=== PATIENT | female | born 2000 | race Caucasian/White ===

== ENCOUNTER → 2022-07-01 13:40 | Outpatient (CLI) | payer OTHER, SELFPAY ==
--- NOTE | 2022-07-01 13:42 | DI.US.S_ITS ---
PROCEDURE: US OB <= 14 WEEKS FETUS INDICATIONS: Dating and viability OUTSIDE/PRIOR DATING DATA: Last menstrual period (LMP): 05/07/2022 LMP-based estimated date of delivery (ALEXEI): 02/11/2023 First dating scan (date and location): 07/01/2022 Estimated date of delivery (ALEXEI) from first dating scan: 02/09/2023 TECHNIQUE: Real-time scanning was performed of the fetus and maternal pelvic organs, with image documentation. Endovaginal scanning was also performed to better visualize the fetus and maternal ovaries. COMPARISON: None. FINDINGS: Embryo: Single intrauterine gestational sac is seen with fetus and yolk sac seen. Wilkinson-rump length measures 1.7 cm. Estimated gestational age is 8 weeks, 1 day. Heart rate: 173 beats per minute. Maternal organs: Ovaries are not well seen. No perigestational hemorrhage. IMPRESSION: 1. Single live intrauterine gestation with fetus and yolk sac seen. heart rate is 173 beats per minute. Estimated gestational age is 8 weeks, 1 day. We strive to produce accurate, complete, and clear reports of imaging services. To assist us in improving patient care, this report was composed using standard report templates and voice recognition software. Therefore, it may contain abnormal punctuation, insertions and/or omissions. Occasional wrong-word or sound-alike substitutions may occur. Though we review the report and make efforts to correct it, we do recommend that the report be read carefully in proper context to recognize any text inaccuracies. Dictated by: Austin Huntley M.D. on 07/01/2022 at 18:03 Approved by: Austin Huntley M.D. on 07/01/2022 at 18:05
== END ==
PROVIDERS: Referring Provider Family Medicine; Visit Provider Family Medicine
DX: Z34.01 Encounter for supervision of normal first pregnancy, first trimester (principal); Z3A.08 8 weeks gestation of pregnancy
CPT/HCPCS: 76801; 76817

== ENCOUNTER → 2022-07-28 13:04 | Outpatient (CLI) | payer OTHER, SELFPAY ==
[2022-07-28 13:32] LABS: Specimen Label NATERA
[2022-07-28 13:46] LABS: Add Manual Diff / Slide Review NO; Basophils Absolute Auto 0 /uL (0-100); Basophils Percent Auto 0.3 % (0-2); Eosinophils Absolute Auto 0 /uL (0-450); Eosinophils Percent Auto 0.6 % (2-4); Hematocrit 39.5 % (36-46); Hemoglobin 13.7 g/dL (12.0-16.0); Lymphocytes Absolute Auto 1300 /uL (1100-4500); Lymphocytes Percent Auto 18.1 % (25-40); Mean Corpuscular HGB Conc 34.7 % (30-36); Monocytes Absolute Auto 400 /uL (0-900); Monocytes Percent Auto 5.5 % (3-14); Neutrophils Absolute Auto 5500 /uL (1500-7000); Neutrophils Percent Auto 75.5 % (50-75); Platelet Count 219 X10^3/uL (150-400); Red Blood Cell Count 4.16 X10^6/uL (4.0-5.2); Red Cell Distribution Width 12.7 % (11.6-14.8); White Blood Cell Count 7.3 X10^3/uL (4.5-11.0)
[2022-07-28 14:17] LABS: BUN Creatinine Ratio 14.5 (6-22); Blood Urea Nitrogen 8 mg/dL (7-17); Calcium 8.8 mg/dL (8.4-10.2); Carbon Dioxide 21 mmol/L (22-32); Chloride 104 mmol/L (98-107); Estimated Glomerular Filt Rate > 60 mL/min (>60); Glucose 89 mg/dL (70-100); HEMOLYSIS < 15 (0-50); Sodium 134 mmol/L (137-145)
[2022-07-28 14:37] LABS: Appearance Urine UA CLEAR; Bilirubin Urine UA NEGATIVE (NEGATIVE); Color Urine UA YELLOW; Glucose Urine UA NEGATIVE (Negative); Ketones Urine UA NEGATIVE (NEGATIVE); Leukocyte Esterase Urine UA NEGATIVE (NEGATIVE); Nitrite Urine UA NEGATIVE (Negative); Occult Blood Urine UA NEGATIVE (Negative); Protein Urine UA TRACE (Negative); Specific Gravity Urine UA 1.015 (1.000-1.035)
[2022-07-28 17:57] LABS: Hepatitis B Surface Antigen NEGATIVE s/c (NEGATIVE); Rubella Antibody IgG 10.3 IU/mL (>15)
[2022-07-28 18:16] LABS: HIV 1 & 2 Ab/Ag 4th Gen Combo NEGATIVE (NEGATIVE); Hep C Virus Ab w/Reflex Quant NEGATIVE s/c (NEGATIVE)
[2022-07-29 07:19] LABS: RPR Screen Non Reactive (Non Reactive); Varicella IgG Antibody 172 index (Immune >165)
== END ==
PROVIDERS: Referring Provider Family Medicine; Visit Provider Family Medicine
DX: Z34.81 Encounter for supervision of other normal pregnancy, first trimester (principal); Q61.3 Polycystic kidney, unspecified
CPT/HCPCS: 36415; 80048; 80055; 81003; 86787; 86803; 86850; 86900; 86901; 87086; 87389

== ENCOUNTER → 2022-09-22 11:36 | Outpatient (CLI) | payer OTHER, SELFPAY | PROVIDERS: Visit Provider Family Medicine | DX: N89.8 Other specified noninflammatory disorders of vagina (principal) | CPT/HCPCS: 87210 ==

== ENCOUNTER → 2022-11-19 13:04 | Outpatient (CLI) | payer OTHER, SELFPAY ==
[2022-11-19 14:48] LABS: Add Manual Diff / Slide Review NO; Basophils Absolute Auto 0 /uL (0-100); Basophils Percent Auto 0.2 % (0-2); Eosinophils Absolute Auto 0 /uL (0-450); Eosinophils Percent Auto 0.3 % (2-4); Hematocrit 37.1 % (36-46); Lymphocytes Absolute Auto 1400 /uL (1100-4500); Lymphocytes Percent Auto 13.2 % (25-40); Monocytes Absolute Auto 600 /uL (0-900); Monocytes Percent Auto 5.4 % (3-14); Neutrophils Absolute Auto 8700 /uL (1500-7000); Neutrophils Percent Auto 80.9 % (50-75); Platelet Count 242 X10^3/uL (150-400); Red Blood Cell Count 3.82 X10^6/uL (4.0-5.2); Red Cell Distribution Width 13.7 % (11.6-14.8); White Blood Cell Count 10.8 X10^3/uL (4.5-11.0)
[2022-11-19 15:20] LABS: GTT (PREG) 1 Hour PP 50gm Dose 120 mg/dL (76-139)
== END ==
PROVIDERS: Referring Provider Family Medicine; Visit Provider Family Medicine
DX: Z34.02 Encounter for supervision of normal first pregnancy, second trimester (principal); Z3A.24 24 weeks gestation of pregnancy
CPT/HCPCS: 36415; 82950; 85025

== ENCOUNTER 2022-12-05 18:30 | Outpatient (CLI) | payer OTHER, SELFPAY ==
[2022-12-05 19:14] LABS: Add Manual Diff / Slide Review NO; Basophils Absolute Auto 0 /uL (0-100); Basophils Percent Auto 0.3 % (0-2); Eosinophils Absolute Auto 100 /uL (0-450); Eosinophils Percent Auto 0.5 % (2-4); Hematocrit 34.3 % (36-46); Hemoglobin 11.8 g/dL (12.0-16.0); Lymphocytes Absolute Auto 1700 /uL (1100-4500); Lymphocytes Percent Auto 14.9 % (25-40); Mean Corpuscular HGB Conc 34.3 % (30-36); Mean Corpuscular Hemoglobin 33.2 PG (26-34); Mean Corpuscular Volume 96.9 fL (80-100); Monocytes Absolute Auto 800 /uL (0-900); Monocytes Percent Auto 6.7 % (3-14); Neutrophils Absolute Auto 8700 /uL (1500-7000); Neutrophils Percent Auto 77.6 % (50-75); Platelet Count 213 X10^3/uL (150-400); Red Blood Cell Count 3.54 X10^6/uL (4.0-5.2); Red Cell Distribution Width 13.3 % (11.6-14.8); White Blood Cell Count 11.3 X10^3/uL (4.5-11.0)
--- NOTE | 2022-12-05 19:16 | P.TNLD_ITS ---
Visit Information Visit Information Date of evaluation: 12/05/22 Primary OB Provider: Crystal Prater On-call OB Provider: Nimco Wills Comments/Additional reasons for admission: pt. c/o headaches, RUQ pain, no scotomata, increased blood pressure, decreased movement Vital Signs Vital Signs: BP 122/74, P 88, T 36.1 FOR[facility]LY [facility], [facility] Medical History (Updated 12/05/22 @ 19:51 by Nimco Wills MD) Acne LGSIL on Pap smear of cervix Polycystic kidney disease Seasonal allergies Surgical History (Updated 06/16/22 @ 15:35 by Tracee Das, RN) History of removal of skin mole [place] teeth extracted (~2018) Family History (Updated 06/16/22 @ 15:59 by Tracee Das, HERBERTH) Mother Polycystic kidney disease Family/Other Polycystic kidney disease Grandfather Marfans syndrome Polycystic kidney disease Family/Other Marfans syndrome Grandmother Lymphoma Arthritis Grandfather Mental health problem Family/Other Marfans syndrome Sister Depression Anxiety Social History marital status: number of children: 0 household members: spouse and friend(s) lives independently: Yes caregiver/support person: No housing: house pets and animals: Yes education level: college (some college) occupational status: employed (active duty lathe machinist) current occupational exposures/hazards: Yes (exposure in the building, but no contact Hazmat duties while ) special elizabeth needs: No travel history: recent ([employer], [place]) seatbelt use: always helmet use: Yes water heater temp set < 120 deg: Yes working smoke detector in home: Yes fire extinguisher in home: Yes carbon monox detector in home: Yes firearms in home: Yes (some locked up, not all) do you feel safe at home: Yes Smoking Status: Former smoker (quit vaping 12/2021) second hand exposure: Yes (roommate vapes) alcohol intake: former (5-7 glasses of wine/week when not ) substance use type: does not use during the past year weight has: increased > 10 lbs well-balanced diet: about half the time daily servings fruits/ve-4 caffeine: Yes (<100mg/day) Type(s) of exercise: walking frequency: 3-4 times per week duration: 30-45 minutes/day Review of Systems Review of Systems Narrative: pt. c/o headache, RUQ pain, increased BP, decreased movement, no fevers, no bleeding, no contractions Objective Labs 12/05/22 19:10 12/05/22 19:10 Evaluation Evaluation Baseline heart rate: 125 Variability: Moderate (11-25) monitor accelerations: Present Monitor Decelerations: Absent Contraction Frequency (minutes): 0 Category of Tracing: Reactive Status: Category l Diagnosis, Plan/Disposition Final Diagnosis (1) headache in third trimester: Status: Acute (2) 30 weeks gestation of : Status: Acute (3) Decreased movement affecting management of in third trimester: Status: Acute Plan/Disposition Plan: Reactive NST, pt reassured baby fine. RUQ pain likely musculoskeletal ice packs and Tylenol. No evidence of preeclampsia, BP normal, normal PIH labs. Tylenol for headaches. OB Disposition: home
[2022-12-05 19:25] LABS: Aspartate Aminotransferase 23 IU/L (14-36); BUN Creatinine Ratio 11.3 (6-22); Blood Urea Nitrogen 6 mg/dL (7-17); Estimated Glomerular Filt Rate > 60 mL/min (>60); Uric Acid 3.4 mg/dL (2.5-6.2)
[2022-12-05 19:35] LABS: Creatinine Urine Random 146.9 mg/dL; Protein (Total) Urine Random 7 mg/dL (0-12); Protein Creatinine Ratio Urine 0.04 GRAM/24H
== END 2022-12-05 19:53 | disposition home or self-care (01) ==
LOC: OB 12-29 08:36
PROVIDERS: Referring Provider Specialist; Visit Provider Specialist
DX: O36.8130 Decreased fetal movements, third trimester, not applicable or unspecified (principal); O26.893 Other specified pregnancy related conditions, third trimester; R51.9 Headache, unspecified; R10.11 Right upper quadrant pain; R03.0 Elevated blood-pressure reading, without diagnosis of hypertension; Z3A.30 30 weeks gestation of pregnancy
CPT/HCPCS: 36415; 59025; 82570; 84156; 84450; 84550; 85025; G0378; G0379

== ENCOUNTER → 2022-12-08 14:05 | Outpatient (CLI) | payer OTHER, SELFPAY ==
--- NOTE | 2022-12-08 14:06 | DI.US.S_ITS ---
PROCEDURE: US OB LIMITED INDICATIONS: EFW OUTSIDE/PRIOR DATING DATA: Last menstrual period (LMP): 05/07/2022. LMP-based estimated date of delivery (ALEXEI): 02/11/2023. First dating scan (date and location): 07/01/2022. Estimated date of delivery (ALEXEI) from first dating scan: 02/09/2023. The calculations are made using the working ALEXEI of 02/11/2023. TECHNIQUE: Real-time scanning was performed of the fetus, with image documentation and biometric measurements. Endovaginal scanning: Not performed COMPARISON: None. FINDINGS: General: A single living intrauterine gestation is present. Presentation: Vertex. Placenta: Placental position is posterior , without previa. \ Amniotic fluid index: 16.7 cm, normal range is 5-24 cm. Single deepest vertical pocket is 5.8 cm. heart rate: 152 beats per minute. Maternal cervical canal: 3.1 cm long. Normal lower limit is 2.5 cm. biometrics: Biparietal diameter: 8.3 cm, 33 weeks 2 days Head circumference: 29.3 cm, 32 weeks 2 days Abdominal circumference: 28.4 cm, 32 weeks 3 days Femur length: 6.0 cm, 31 weeks 3 days Clinically estimated gestational age: 30 weeks 5 days Composite gestational age from present scan: 32 weeks 3 days Estimated weight and percentile: 1924 g, 86 percentile Other: Not applicable. IMPRESSION: 1. Living 3rd trimester intrauterine with no sonographic evidence of complications. 2. Current ultrasound age is 12 days greater than clinical age based on LMP. EFW is 86 percentile We strive to produce accurate, complete, and clear reports of imaging services. To assist us in improving patient care, this report was composed using standard report templates and voice recognition software. Therefore, it may contain abnormal punctuation, insertions and/or omissions. Occasional wrong-word or sound-alike substitutions may occur. Though we review the report and make efforts to correct it, we do recommend that the report be read carefully in proper context to recognize any text inaccuracies. Dictated by: Jeremy Martell M.D. on 12/08/2022 at 15:03 Approved by: Jeremy Martell M.D. on 12/08/2022 at 15:06
== END ==
PROVIDERS: Referring Provider Family Medicine; Visit Provider Family Medicine
DX: Z34.93 Encounter for supervision of normal pregnancy, unspecified, third trimester (principal); Z3A.32 32 weeks gestation of pregnancy
CPT/HCPCS: 76815

== ENCOUNTER → 2023-01-14 14:09 | Outpatient (CLI) | payer OTHER, SELFPAY ==
[2023-01-14 20:24] LABS: Creatinine Urine Random 189.5 mg/dL; Protein (Total) Urine Random 13 mg/dL (0-12); Protein Creatinine Ratio Urine 0.06 GRAM/24H
[2023-01-15 14:28] LABS: Strep Grp B PCR NEG for Grp B Strep
== END ==
PROVIDERS: Visit Provider Family Medicine
DX: O16.3 Unspecified maternal hypertension, third trimester (principal)
CPT/HCPCS: 82570; 84156; 87653

== ENCOUNTER → 2023-01-14 14:44 | Outpatient (CLI) | payer OTHER, SELFPAY ==
--- NOTE | 2023-01-14 14:45 | DI.US.S_ITS ---
PROCEDURE: US PERIPH VENOUS LOW EXTREM LT INDICATIONS: EDEMA TECHNIQUE: Real-time imaging, as well as color and pulse Doppler interrogation, were performed of the lower extremity deep veins from the inguinal ligament to the popliteal fossa, with documentation of the visualized calf veins. COMPARISON: None. FINDINGS: The common femoral, femoral, popliteal, and the visualized calf veins are normally compressible, and free of intraluminal thrombus. Color and pulse Doppler demonstrate normal phasic intraluminal flow. There is normal augmentation response to distal compression maneuver. IMPRESSION: No findings of lower extremity deep venous thrombosis. Dictated by: Rafael León M.D. on 01/14/2023 at 16:46 Approved by: Rafael León M.D. on 01/14/2023 at 16:50
[2023-01-14 17:22] LABS: Add Manual Diff / Slide Review NO; Basophils Absolute Auto 100 /uL (0-100); Basophils Percent Auto 0.6 % (0-2); Eosinophils Absolute Auto 0 /uL (0-450); Eosinophils Percent Auto 0.4 % (2-4); Hematocrit 36.7 % (36-46); Hemoglobin 12.9 g/dL (12.0-16.0); Lymphocytes Absolute Auto 1400 /uL (1100-4500); Lymphocytes Percent Auto 14.3 % (25-40); Mean Corpuscular HGB Conc 35.2 % (30-36); Mean Corpuscular Volume 96.7 fL (80-100); Monocytes Absolute Auto 500 /uL (0-900); Monocytes Percent Auto 5.5 % (3-14); Neutrophils Absolute Auto 7700 /uL (1500-7000); Neutrophils Percent Auto 79.2 % (50-75); Platelet Count 210 X10^3/uL (150-400); Red Cell Distribution Width 13.8 % (11.6-14.8); White Blood Cell Count 9.7 X10^3/uL (4.5-11.0)
[2023-01-14 17:53] LABS: Alanine Aminotransferase 43 IU/L (<35); Albumin 3.2 g/dL (3.5-5.0); Albumin Globulin Ratio 1.3 (1.0-2.8); Alkaline Phosphatase 105 U/L (38-126); Aspartate Aminotransferase 34 IU/L (14-36); BUN Creatinine Ratio 8.3 (6-22); Bilirubin Total 0.6 mg/dL (0.2-1.3); Blood Urea Nitrogen 5 mg/dL (7-17); Calcium 8.8 mg/dL (8.4-10.2); Carbon Dioxide 24 mmol/L (22-32); Chloride 104 mmol/L (98-107); Estimated Glomerular Filt Rate > 60 mL/min (>60); Globulin 2.5 g/dL (1.7-4.1); Glucose 89 mg/dL (70-100); HEMOLYSIS < 15 (0-50); Potassium 3.8 mmol/L (3.4-5.1); Sodium 136 mmol/L (137-145); Total Protein 5.7 g/dL (6.3-8.2)
== END ==
PROVIDERS: Referring Provider Family Medicine; Visit Provider Family Medicine
DX: O14.03 Mild to moderate pre-eclampsia, third trimester (principal)
CPT/HCPCS: 36415; 80053; 82570; 84156; 85025; 87653; 93971

== ENCOUNTER 2023-01-16 19:17 | Outpatient (CLI) | payer OTHER, SELFPAY | END 2023-01-16 20:50 | disposition home or self-care (01) | LOC: LABOR 19:22 → OB 01-20 06:16 | PROVIDERS: Referring Provider Family Medicine; Visit Provider Family Medicine | DX: O16.3 Unspecified maternal hypertension, third trimester (principal); Z3A.36 36 weeks gestation of pregnancy | CPT/HCPCS: 59025; 59050; G0378; G0379 ==

== ENCOUNTER → 2023-01-20 12:50 | Outpatient (CLI) | payer OTHER, SELFPAY ==
--- NOTE | 2023-01-20 13:59 | DI.US.S_ITS ---
PROCEDURE: US OB LIMITED INDICATIONS: LARGE FOR GESTATIONAL AGE OUTSIDE/PRIOR DATING DATA: Last menstrual period (LMP): 05/07/2023. LMP-based estimated date of delivery (ALEXEI): 02/11/2023. First dating scan (date and location): 07/01/2022. Estimated date of delivery (ALEXEI) from first dating scan: 02/09/2023. The calculations are made using the clinical ALEXEI of 02/11/2023. TECHNIQUE: Real-time scanning was performed of the fetus, with image documentation. COMPARISON: [facility], , OB LIMITED, 12/08/2022, 14:13. FINDINGS: A single living intrauterine gestation is present. Presentation: Vertex. Placenta: Placental position is posterior, without previa. Amniotic fluid index: 16.7 cm, normal range is 5-24 cm. Single deepest vertical pocket is 7.6 cm. heart rate: 123 beats per minute. Maternal cervical canal: Not well seen. BPD: 9.4 cm 38 weeks 2 days HC: 32.8 cm 37 weeks 2 days AC: 33.3 cm 37 weeks 2 days FL: 7.0 cm 35 weeks 6 days Clinically estimated gestational age: 36 weeks 6 days Estimated gestational age from initial scan: 37 weeks 1 day weight 3089 g, 59th percentile IMPRESSION: Single live intrauterine with ultrasound gestational age today of 37 weeks 1 day. Appropriate interval growth. MALLORY is within normal limits. Dictated by: Kelly Granado M.D. on 01/20/2023 at 17:03 Approved by: Kelly Granado M.D. on 01/20/2023 at 17:19
[2023-01-20 14:36] LABS: Add Manual Diff / Slide Review NO; Basophils Absolute Auto 0 /uL (0-100); Basophils Percent Auto 0.5 % (0-2); Eosinophils Absolute Auto 0 /uL (0-450); Eosinophils Percent Auto 0.3 % (2-4); Hematocrit 37.4 % (36-46); Hemoglobin 12.9 g/dL (12.0-16.0); Lymphocytes Absolute Auto 1400 /uL (1100-4500); Lymphocytes Percent Auto 14.8 % (25-40); Mean Corpuscular HGB Conc 34.6 % (30-36); Mean Corpuscular Hemoglobin 33.7 PG (26-34); Mean Corpuscular Volume 97.2 fL (80-100); Monocytes Absolute Auto 600 /uL (0-900); Monocytes Percent Auto 6.5 % (3-14); Neutrophils Absolute Auto 7300 /uL (1500-7000); Neutrophils Percent Auto 77.9 % (50-75); Platelet Count 237 X10^3/uL (150-400); Red Blood Cell Count 3.84 X10^6/uL (4.0-5.2); Red Cell Distribution Width 13.9 % (11.6-14.8); White Blood Cell Count 9.3 X10^3/uL (4.5-11.0)
[2023-01-20 14:54] LABS: Protein (Total) Urine Random 16 mg/dL (0-12); Protein Creatinine Ratio Urine 0.21 GRAM/24H
[2023-01-20 14:55] LABS: Alanine Aminotransferase 46 IU/L (<35); Albumin 3.4 g/dL (3.5-5.0); Albumin Globulin Ratio 1.1 (1.0-2.8); Alkaline Phosphatase 114 U/L (38-126); Aspartate Aminotransferase 33 IU/L (14-36); BUN Creatinine Ratio 5.8 (6-22); Bilirubin Total 0.7 mg/dL (0.2-1.3); Blood Urea Nitrogen 3 mg/dL (7-17); Calcium 9.2 mg/dL (8.4-10.2); Carbon Dioxide 21 mmol/L (22-32); Chloride 106 mmol/L (98-107); Estimated Glomerular Filt Rate > 60 mL/min (>60); Glucose 91 mg/dL (70-100); HEMOLYSIS 17 (0-50); Potassium 3.5 mmol/L (3.4-5.1); Sodium 135 mmol/L (137-145); Total Protein 6.4 g/dL (6.3-8.2)
== END ==
PROVIDERS: Referring Provider Family Medicine; Visit Provider Family Medicine
DX: Z3A.37 37 weeks gestation of pregnancy; O13.3 Gestational [pregnancy-induced] hypertension without significant proteinuria, third trimester
CPT/HCPCS: 36415; 76815; 80053; 82570; 84156; 85025

== ENCOUNTER 2023-01-20 12:52 | Outpatient (CLI) | payer OTHER, SELFPAY | END 2023-01-20 13:57 | disposition home or self-care (01) | LOC: LABOR 13:38 → OB 01-26 12:00 | PROVIDERS: Referring Provider Family Medicine; Visit Provider Family Medicine | DX: Z34.90 Encounter for supervision of normal pregnancy, unspecified, unspecified trimester (principal); Z3A.37 37 weeks gestation of pregnancy | CPT/HCPCS: 36415; 59025; 76815; 80053; 82570; 84156; 85025; G0378; G0379 ==

== ENCOUNTER 2023-01-22 20:36 | Inpatient (IN) | payer OTHER, SELFPAY ==
[2023-01-22 20:56] VITALS: BP 137/80
[2023-01-22] MEDS: LABETALOL 100 MG TABLET 200 MG PO (21:49)
[2023-01-22] MEDS: SERTRALINE 50 MG TABLET 25 MG PO (21:49)
[2023-01-22] MEDS: miSOPROStoL 25 MCG TABLET VAG (22:08)
[2023-01-22 22:14] LABS: Add Manual Diff / Slide Review NO; Basophils Absolute Auto 100 /uL (0-100); Basophils Percent Auto 0.7 % (0-2); Eosinophils Absolute Auto 0 /uL (0-450); Eosinophils Percent Auto 0.2 % (2-4); Hematocrit 34.7 % (36-46); Hemoglobin 12.2 g/dL (12.0-16.0); Lymphocytes Absolute Auto 1700 /uL (1100-4500); Lymphocytes Percent Auto 16.2 % (25-40); Mean Corpuscular HGB Conc 35.3 % (30-36); Mean Corpuscular Hemoglobin 34.2 PG (26-34); Monocytes Absolute Auto 800 /uL (0-900); Monocytes Percent Auto 7.2 % (3-14); Neutrophils Absolute Auto 8200 /uL (1500-7000); Neutrophils Percent Auto 75.7 % (50-75); Platelet Count 225 X10^3/uL (150-400); Red Blood Cell Count 3.58 X10^6/uL (4.0-5.2); Red Cell Distribution Width 13.9 % (11.6-14.8); White Blood Cell Count 10.8 X10^3/uL (4.5-11.0)
[2023-01-22] MEDS: ZOLPIDEM 5 MG TABLET PO (23:05)
[2023-01-23] MEDS: miSOPROStoL 25 MCG TABLET VAG ×2 (02:08→06:08)
--- NOTE | 2023-01-23 09:11 | PM.OBHP.IH.1 ---
OB HPI Date/Time Date of admission: 01/22/23 Date Patient Seen: 01/23/23 Time Patient Seen: 07:45 History of Present Condition Chief complaint: observation of labor ALEXEI Calculator Estimated Delivery Date Method Current WG Current Estimate 02/11/23 Manual 37w 2d Final ALEXEI - CINDY Other Estimates 02/11/23 LMP (Certain) 37w 2d 02/09/23 Ultrasound #1 37w 4d Estimated Gestational Age (weeks): 37w2d : 1 Para: 0 Narrative: Pt is a 22yo at 37w2d here for IOL for gestational HTN. Pt denies any vaginal bleeding or LOF. She is feeling mild cramping. She is feeling her baby move regularly. No headache, vision changes, RUQ pain, acutely worsening swelling. Pt with history of polycystic kidneys. FOBs sister also due to hypoplastic left heart syndrome. MFM referral was completed at the start of the . They recommended close monitoring of the pt for hypertensive issues and UTIs. echo was completed that was normal. At 36wks the pt was noted to have consistently elevated BPs and was diagnosed with gestational hypertension. Labs were reassuring, and the pt was asymptomatic. care: good care, initiated at week # (11) and pounds weight gain (32) Dating criteria OB: LMP confirmed by 1st trimester US Ultrasounds: normal 1st trimester US and normal mid trimester US Obstetrical complications: none Medical complications OB: other (Polycystic kidney disease) Indications Indication for induction OB: gestational HTN/pre-eclampsia Preadmission Labs Last OB Lab Results: Blood Type O Positive 01/22/23 22:04 Antibody Screen Negative 01/22/23 22:04 Hematocrit 34.7 % (36-46) L 01/22/23 22:04 Hemoglobin 12.2 g/dL (12.0-16.0) 01/22/23 22:04 Hepatitis B Surface Antigen Negative s/c (NEGATIVE) 07/28/22 13:13 Hepatitis C Antibody Negative s/c (NEGATIVE) 07/28/22 13:13 Rubella Antibody 10.3 IU/mL (>15) L 07/28/22 13:13 Varicella-Zoster IgG Antibody 172 index (Immune >165) 07/28/22 13:13 Glucose 1 Hour 120 mg/dL (76-139) 11/19/22 13:11 Group B Streptococcus (PCR) Neg for grp b strep 01/14/23 14:09 Evaluation Evaluation Baseline heart rate: 125 Variability: Moderate (11-25) monitor accelerations: Present Monitor Decelerations: Absent Contraction Frequency (minutes): 7 Uterine Contraction Intensity: Mild Status: Category l Dilation (cm): 2 Effacement (%): 70 Dilation: 1-2 cm Effacement: 60-70% station: -2 Position of cervix: posterior Consistency: soft Rouse score: 6 PFSH Medical History (Updated 01/20/23 @ 07:55 by Crystal Prater MD) Acne LGSIL on Pap smear of cervix Polycystic kidney disease Seasonal allergies Surgical History (Updated 06/16/22 @ 15:35 by Tracee Das, RN) History of removal of skin mole [place] teeth extracted (~2017) Family History (Updated 06/16/22 @ 15:59 by Tracee Das RN) Mother Polycystic kidney disease Family/Other Polycystic kidney disease Grandfather Marfans syndrome Polycystic kidney disease Family/Other Marfans syndrome Grandmother Lymphoma Arthritis Grandfather Mental health problem Family/Other Marfans syndrome Sister Depression Anxiety Social History marital status: number of children: 0 household members: spouse and friend(s) lives independently: Yes caregiver/support person: No housing: house pets and animals: Yes education level: college (some college) occupational status: employed (active duty computer numerical control machinist) current occupational exposures/hazards: Yes (exposure in the building, but no contact Hazmat duties while ) special elizabeth needs: No travel history: recent (domestic, [place]) seatbelt use: always helmet use: Yes water heater temp set < 120 deg: Yes working smoke detector in home: Yes fire extinguisher in home: Yes carbon monox detector in home: Yes firearms in home: Yes (some locked up, not all) do you feel safe at home: Yes Smoking Status: Former smoker second hand exposure: Yes (roommate vapes) alcohol intake: former (5-7 glasses of wine/week when not ) substance use type: does not use during the past year weight has: increased > 10 lbs well-balanced diet: about half the time daily servings fruits/ve-4 caffeine: Yes (<100mg/day) Type(s) of exercise: walking frequency: 3-4 times per week duration: 30-45 minutes/day Meds Home Medications and Allergies Home Medications Medication Instructions Recorded Confirmed Type prenat.vits,melissa,rev-nrjv-iowdb 1 tab PO DAILY 06/16/22 01/22/23 History labetalol 100 mg tablet 200 mg PO BID gestational 01/22/23 01/22/23 History hypertension sertraline 25 mg tablet 25 mg PO DAILY depression 01/22/23 01/22/23 History Allergies Allergy/AdvReac Type Severity Reaction Status Date / Time No Known Drug Allergies Allergy Unverified 01/14/23 13:51 OB Exam Narrative Exam Narrative: Gen: NAD, sitting comfortably in bed, appears well CV: RRR, no murmurs Resp: clear to auscultation bilaterally Abd: soft, nontender, gravid Ext: trace edema Neuro: no clonus Objective Labs 01/22/23 22:04 Labs: Laboratory Results - last 24 hr 01/22/23 01/22/23 22:04 22:04 WBC 10.8 RBC 3.58 L Hgb 12.2 Hct 34.7 L MCV 97.0 MCH 34.2 H MCHC 35.3 RDW 13.9 Plt Count 225 Neut % (Auto) 75.7 H Lymph % (Auto) 16.2 L [place] % (Auto) 7.2 Eos % (Auto) 0.2 L Baso % (Auto) 0.7 Neut # (Auto) 8200 H Lymph # (Auto) 1700 [place] # (Auto) 800 Eos # (Auto) 0 Baso # (Auto) 100 Blood Type O Positive Antibody Screen Negative Assessment and Plan Assessment and Plan Assessment and Plan narrative: Pt is a 22yo at 37w2d here for IOL for gestational HTN. GBS negative, Rh positive. BPs all normal range thus far, pre-eclampsia/HELLP labs completed 01/20 normal range. Received cytotec overnight with minimal cervical change. Rouse score currently 6. Discussed pitocin vs higgins catheter, and pt prefers pitocin at this point. - Expectant management, anticipate - FHT reassuring - Start pitocin, titrate as tolerated. If without change within several hours of initiating, plan to use higgins - Epidural for pain control when in more active labor - GBS negative, no prophylaxis indicated - Close monitoring of BPs
[2023-01-23] MEDS: OXYTOCIN PREMIX 30 UNIT/500 ML PLAST..BAG IV (09:12)
[2023-01-23 09:21] VITALS: BP 130/74; PULSE 85
[2023-01-23] MEDS: LABETALOL 100 MG TABLET 200 MG PO ×2 (09:21→21:12)
--- NOTE | 2023-01-23 13:29 | PM.OBPNLAB ---
Date/Time Date Patient Seen: 01/23/23 Time Patient Seen: 13:29 Pain Control Pain control: tolerating well Pelvic Exam Dilation (cm): 2.5 Effacement (%): 70 station: -2 Amniotic membrane status: Intact Comments: very posterior Contractions Monitor mode: External Pitocin rate (mU/min): 14 Contraction frequency (min): 3 Contraction intensity: Moderate Status status: Category l Heart Rate Baseline: 130 Monitor Accelerations: Present Monitor Decelerations: Absent Monitor Variability: Moderate Assessment and Plan Comments: Pt is a 22yo at 37w2d here for IOL for gestational HTN.? GBS negative, Rh positive.? BPs all normal range thus far, pre-eclampsia/HELLP labs completed 01/20 normal range.? Received cytotec overnight with minimal cervical change.? Rouse score 6 this morning.? Discussed pitocin vs higgins catheter, and pt prefers pitocin at this point. Pt just starting to feel contractions, does have some small cervical changes. Will continue with pitocin.
[2023-01-23] MEDS: fentaNYL 100 MCG/2 ML INJ 50 MCG IV ×3 (18:22→21:12)
--- NOTE | 2023-01-23 21:07 | PM.OBPNLAB ---
Date/Time Date Patient Seen: 01/23/23 Time Patient Seen: 16:45 Pain Control Pain control: tolerating well Pelvic Exam Dilation (cm): 2 Effacement (%): 70 station: -1 Amniotic membrane status: Ruptured Comments: After informed consent, AROM performed with production of clear fluid Contractions Monitor mode: External Contraction frequency (min): 3 Contraction intensity: Moderate Status status: Category l Heart Rate Baseline: 130 Monitor Accelerations: Present Monitor Decelerations: Absent Monitor Variability: Moderate Assessment and Plan Comments: Pt is a 22yo at 37w2d here for IOL for gestational HTN.? GBS negative, Rh positive.? BPs all normal range thus far, pre-eclampsia/HELLP labs completed 01/20 normal range.? Received cytotec overnight with minimal cervical change.? Rouse score 6 this morning.? Discussed pitocin vs higgins catheter, and pt preferred pitocin.? AROM now performed with clear fluid present. Cervix significantly more anterior at this point, although no significant change in dilation. Continue pitocin, titrate as tolerated. Plan to recheck cervix in 4-6hrs to ensure making change.
[2023-01-23] MEDS: SERTRALINE 50 MG TABLET 25 MG PO (21:12)
[2023-01-24] MEDS: FENT 2MCG/ML BUPIV 0.1% EPI 200 MCG/100 ML PLAST..BAG 6 MCG EPIDURAL ×2 (04:28→08:21)
[2023-01-24] MEDS: diphenhydrAMINE 50 MG/ML VIAL 25 MG IV (05:28)
--- NOTE | 2023-01-24 07:57 | P.PNOB_ITS ---
Date/Time Date Patient Seen: 01/24/23 Time Patient Seen: 07:57 Pain Control Pain control: epidural Pelvic Exam Dilation (cm): 10 Effacement (%): 100 station: +2 Amniotic membrane status: Ruptured Contractions Monitor mode: External Pitocin rate (mU/min): 14 Contraction frequency (min): 3 Contraction intensity: Moderate Status status: Category l Heart Rate Baseline: 135 Monitor Accelerations: Present Monitor Decelerations: Absent Monitor Variability: Moderate Assessment and Plan Comments: Pt is a 22yo at 37w2d here for IOL for gestational HTN.? GBS negative, Rh positive.? BPs all normal range thus far, pre-eclampsia/HELLP labs completed 01/20 normal range.? Received cytotec initially with minimal cervical change.? AROM performed with clear fluid present.? Pitocin was then titrated. The pt received an epidural and progressed to complete. She pushed for nearly 4hrs with minimal descent thought to be more be due to maternal propulsive efforts. Many positions were attempted. Due to maternal fatigue, duration of pushing, and progressing labial swelling the decision was made to proceed with a vacuum- assisted vaginal delivery. Patient was evaluated and noted to have adequate pain control. Patient counseled on risks/benefits/alternatives of vacuum assisted delivery. Risks were discussed and they included but were not limited to a need for an episiotomy, pressure pierre on the baby, lacerations to the baby's scalp/face, serious damage including skull fracture, the need to proceed with an abdominal procedure, , paralysis of the baby's arms and/or legs, neurological impairment of the baby. Alternatives would include or further observation. Questions were answered and the patient verbalized an understanding and decided to proceed. Cervix completely dilated and maternal bladder emptied. Maternal pelvis was noted to be adequate. Vacuum cup of the [employer] applied to the flexion point without difficulty and during contractions, pressure applied between 400-600 mmHg as indicated in the green zone of the pressure gauge. The vacuum was utilized for 6 contractions. Initially there was good descent. Descent continued, however with more regression between contractions. There were 3 pop-offs throughout the course of vacuum application. After the last 2 contractions and last pop-off, the head was noted to turtle back into the pelvis significantly. Due to concern for shoulder dystocia, with 3 pop-offs already occurring, decision was made to proceed with primary for failure to descend.
--- NOTE | 2023-01-24 08:00 | PM.PREOP ---
Pre-operative Note Interval Note History & Physical reviewed/Exam performed by Physician: Yes Changes to H&P: No
[2023-01-24] MEDS: CITRIC ACID/SODIUM CITRATE 15 ML SOLUTION 30 ML PO (08:21)
[2023-01-24] MEDS: CEFAZOLIN 2 GM/100 ML PREMIX 100 ML IV (09:05)
--- NOTE | 2023-01-24 09:31 | SUR.OPER ---
Supine on Padded OR bed, head on pillow, safety belt at thigh, arms secured on padded arm boards at <90 degrees abduction. Bump under right buttock. Legs uncrossed with pillow under knees, gel pad to heels, tape over blanket to lower legs. Gel pad placed between patients posterior upper leg and urinary catheter tubing.
--- NOTE | 2023-01-24 09:32 | SUR.OPER ---
Viable baby girl delivered at 0918. Placenta delivered. Placenta and cord blood tubes X2 given to L&D RN.
[2023-01-24 10:06] VITALS: BP 137/80; PULSE 66; RESP 21; TEMP 37.3; O2SAT 96
--- NOTE | 2023-01-24 10:10 | P.OP_ITS ---
Operative Date/Time/Diagnoses Date of procedure: 01/24/23 Pre-op diagnosis: 37w3d gestation GBS negative Rh positive Gestational hypertension Failure to descend Failed vacuum attempt Post-op diagnosis: same Procedure & Clinicians Procedure: Primary Same procedure as scheduled: Yes Indications: Failure to descend and failed vaccuum attempt Surgeon: Crystal Prater Academic Support Coordinator: Nimco Wills Anesthesia Type: Epidural Operative Notes Findings: Normal uterus, ovaries, and tubes Closure Type: primary Specimen(s): cord blood Intraoperative meds administered: Ketorolac and Pitocin Applied: Catheter Estimated Blood Loss (mL): 400 Blood products transfused: none Procedure in detail: OPERATIVE COURSE: The patient was taken to the operating room where epidural anesthesia was rebolused. She was then prepared and draped in the normal sterile fashion in the dorsal supine position with a leftward tilt. Anesthesia was tested and found to be adequate. A Pfannensteil skin incision was then made with the scalpel and carried through to the underlying layer of fascia with the scalpel. The fascia was incised in the midline and the incision extended laterally with the Lynne scissors. The superior aspect of the fascial incision was then grasped with Puneet clamps, elevated with the help of the kennel assistant, and the underlying rectus muscles dissected off bluntly and sharply where needed. Attention was then turned to the inferior aspect of the incision which, in a similar fashion, was grasped, tented up with Puneet clamps, and the rectus muscle dissected off bluntly and sharply with Lynne scissors. The rectus muscles were then in the midline, and the peritoneum was identified and entered bluntly. The peritoneal incision was then extended with good visualization of the bladder. Retraction was provided by the kennel assistant. The bladder blade was then inserted and the vesicouterine peritoneum identified, grasped with pick-ups and entered sharply with the Metzenbaum scissors. The incision was then extended laterally and the bladder flap created digitally. The bladder blade was then reinserted and the lower uterine segment incised in a transverse fashion with the scalpel, with the kennel assistant providing suction. The uterine incision was then extended superolaterally by pulling superolaterally on both sides. Membranes were ruptured and fluid was clear. The bladder blade was removed the 's head was flexed out of DESIRE position and delivered atraumatically, with fundal pressure by the kennel assistant. The nose and mouth were suctioned with bulb suction and the cord was clamped and cut after 1 minute. The was handed off to the waiting nursing staff. Cord blood was collected for Rh status. The placenta was then delivered with gentle cord traction. The uterus was then cleared of all clots and debris. The uterine incision was repaired with O- Vicryl in a running, locked fashion, including a small extension on the left side. A second layer of the same suture was used for imbrication. Figure-of-8 with 2-0 Chromic was completed on the left side of the hysterotomy for excellent hemostasis. The gutters were cleared of all clots. Hysterotomy was investigated and found to be hemostatic. The bladder flap was closed with 2-O Chromic. The peritoneum was closed with 3-O Vicryl. The fascia was reapproximated with O-Vicryl in a running fashion. The subcutaneous tissue was reapproximated with 3-O Vicryl. The skin was closed with 4-O Vicryl. The kennel assistant helped with retraction during closures. SPONGE AND NEEDLE COUNTS: Correct x3. DRESSING: Aquacel ANTICOAGULATION: SCDs applied prior to Surgery Preop antibiotics given (see MAR). The patient was taken to recovery room having tolerated procedure well. Baby 1: Gender: Female Presentation: vertex Position: Left Occiput Anterior Placental Delivery Description: Spontaneous Cord Vessel Description: 3 Vessels score (1 min): 9 score (5 min): 9 weight: 6 lb 15 oz Post-operative Condition: stable Disposition: PACU Aftercare: routine postop
[2023-01-24 10:11] VITALS: BP 139/73; PULSE 77; RESP 11; O2SAT 96
[2023-01-24] MEDS: fentaNYL 100 MCG/2 ML INJ 50 MCG IV (10:19)
[2023-01-24] MEDS: ONDANSETRON 4 MG/2 ML INJ IV (10:19)
[2023-01-24 10:21] VITALS: BP 147/81; PULSE 85; RESP 11; O2SAT 97
[2023-01-24 10:26] VITALS: BP 139/78; PULSE 75; RESP 14; TEMP 36.6; O2SAT 98
[2023-01-24] MEDS: OXYCODONE IR 5 MG TABLET PO ×2 (12:11→21:16)
--- NOTE | 2023-01-24 12:27 | PM.ANES.PR ---
Operative Date/Time/Diagnoses Date of procedure: 01/23/23 Time of procedure: 22:40 Pre-op diagnosis: Labor pain Post-op diagnosis: same
--- NOTE | 2023-01-24 12:30 | PM.AN.REGBLK ---
Regional Block Pre-procedure Procedure: Continuous Lumbar Epidural for L&D Attending OB provider: Crystal Prater PMH/ROS narrative: Patient is a G1PO with gestational hypertension requesting labor epidural Hx: No personal or family history of anesthesia problems. Exam narrative: Mallampati 2, T.M > 3 cm, good neck ROM, dentition intact ASA Class: II Labs: Hct 34.7 % (36-46) L 01/22/23 22:04 Plt Count 225 X10^3/uL (150-400) 01/22/23 22:04 Medications: Current Medications Generic Name Dose Route Start Last Admin Trade Name Freq PRN Reason Stop Dose Admin Acetaminophen 650 mg 01/24/23 11:28 Acetaminophen 325 Mg Tablet PO Q6H KLAUS Carboprost Tromethamine 250 mcg 01/24/23 11:28 Carboprost 250 Mcg/Ml Ampul IM Q90M PRN Bleeding Docusate Sodium 100 mg 01/25/23 09:00 Docusate 100 Mg Capsule PO DAILY KLAUS Emollient Ointment 1 applic 01/24/23 11:28 Lanolin Oint 7 Gm TOP PRN PRN Oxytocin/Lactated Ringer's 30 unit in 500 mls @ 200 mls/hr 01/24/23 11:28 Oxytocin Premix IV NOW PRN Bleeding Protocol Tranexamic Acid 1,000 mg/ 100 mls @ 200 mls/hr 01/24/23 11:28 Sodium Chloride IV NOW PRN Bleeding Ibuprofen 600 mg 01/25/23 10:15 Ibuprofen 600 Mg Tablet PO Q6H [facility] Ketorolac Tromethamine 30 mg 01/24/23 11:28 Ketorolac 30 Mg/Ml Vial IV 01/25/23 05:29 Q6H KLAUS Methylergonovine Maleate 0.2 mg 01/24/23 11:28 Methylergonovine 0.2 Mg/Ml Vial IM NOW PRN Bleeding Methylergonovine Maleate 0.2 mg 01/24/23 11:28 Methylergonovine 0.2 Mg Tablet PO Q6H PRN Bleeding Misoprostol 800 mcg 01/24/23 11:28 Misoprostol 200 Mcg Tablet MI NOW PRN Bleeding Misoprostol 400 mcg 01/24/23 11:28 Misoprostol 200 Mcg Tablet SL NOW PRN Bleeding Naloxone HCl 0.2 mg 01/24/23 11:28 Naloxone 0.4 Mg/Ml Vial IV Q2MIN PRN Opiate Reversal Ondansetron HCl 4 mg 01/24/23 11:28 Ondansetron 4 Mg/2 Ml Inj IV Q6H PRN Nausea And Vomiting Oxycodone HCl 5 mg 01/24/23 11:28 01/24/23 12:11 Oxycodone Ir 5 Mg Tablet PO 5 mg Q4H PRN Administration Pain, Moderate (4-6) Oxytocin 10 unit 01/24/23 11:28 Oxytocin 10 Unit/Ml Vial IM NOW PRN Bleeding Vit/Calcium/Iron/Folic Ac 1 tab 01/25/23 09:00 Vit,Calc/Iron/Folic 1 Tablet PO DAILY KLAUS Sertraline HCl 25 mg 01/25/23 09:00 Sertraline 50 Mg Tablet PO DAILY KLAUS Allergies: Allergies Allergy/AdvReac Type Severity Reaction Status Date / Time No Known Drug Allergies Allergy Unverified 01/14/23 13:51 Procedure Insertion date: 01/23/23 Insertion time: 22:40 Prep/Local: 1% lidocaine (prep with Chloroprep) Interspace: L4-5 Patient position: sitting Needle: 18 gauge Amrit Loss of resistance with: saline DAGMAR at (cm): 6 Catheter placed at SKIN (cm): 11 Catheter in SPACE (cm): 5 Sensory level: T10 Insertion: No CSF, No Blood, No Paresthesia with insertion, No Paresthesia with injection and No Test dose reaction Initial Medications TEST DOSE time: 22:58 TEST DOSE: 1.5% lidocaine with epinephrine 1:200k (mL): 5 BOLUS DOSE time: 23:59 BOLUS DOSE (mL): 5 BOLUS DOSE med: other (2% Lidocaine) Infusion INFUSION: 0.125% bupivacaine and with fentanyl 2 mcg/mL Initial rate (mL/hr): 10 Subsequent interventions: 01/24/23 @ 0745 : decision to proceed with 2/2 failure to descend/vacuum, patient c/o pain in cervical area, given clinician bolus from pump of 10mls, rate inc to 15ml/hr until OR set up. Patient comfortable, stable FHT after intervention 01/24/23 @0850, epidural stopped in Labor room and patient transferred to OR for at 0855 Post-procedure Anesthesia time START: 22:40 Anesthesia time END: 08:55 Post-procedure Anesthesia Assessment: Yes CV function: HR/BP stable, Yes Resp function: RR/sat/airway adequate, Yes Post-op hydration adequate, Yes Pain control adequate, Yes Nausea & vomiting absent, Yes Temperature > 36 C, Yes Mental status appropriate and Yes Anesthesia complications
[2023-01-24] MEDS: KETOROLAC 30 MG/ML VIAL IV ×2 (16:04→21:15)
[2023-01-24] MEDS: ACETAMINOPHEN 325 MG TABLET 650 MG PO (18:59)
[2023-01-24] MEDS: SERTRALINE 50 MG TABLET 25 MG PO (22:15)
[2023-01-25] MEDS: OXYCODONE IR 5 MG TABLET PO ×5 (01:11→22:04)
[2023-01-25] MEDS: ACETAMINOPHEN 325 MG TABLET 650 MG PO ×4 (01:11→20:56)
[2023-01-25] MEDS: KETOROLAC 30 MG/ML VIAL IV (05:19)
[2023-01-25 06:21] LABS: Add Manual Diff / Slide Review NO; Basophils Absolute Auto 100 /uL (0-100); Basophils Percent Auto 0.6 % (0-2); Eosinophils Absolute Auto 100 /uL (0-450); Eosinophils Percent Auto 0.5 % (2-4); Hematocrit 33.6 % (36-46); Hemoglobin 11.8 g/dL (12.0-16.0); Lymphocytes Absolute Auto 1500 /uL (1100-4500); Lymphocytes Percent Auto 12.6 % (25-40); Mean Corpuscular Hemoglobin 34.1 PG (26-34); Mean Corpuscular Volume 97.3 fL (80-100); Monocytes Absolute Auto 900 /uL (0-900); Monocytes Percent Auto 7.3 % (3-14); Neutrophils Absolute Auto 9300 /uL (1500-7000); Platelet Count 176 X10^3/uL (150-400); Red Blood Cell Count 3.45 X10^6/uL (4.0-5.2); Red Cell Distribution Width 13.9 % (11.6-14.8); White Blood Cell Count 11.8 X10^3/uL (4.5-11.0)
[2023-01-25] MEDS: PRENATAL VIT,CALC/IRON/FOLIC 1 TABLET 1 TAB PO (09:18)
[2023-01-25] MEDS: DOCUSATE 100 MG CAPSULE PO (09:18)
--- NOTE | 2023-01-25 11:50 | PM.OBPN.1 ---
Subjective - OB Subjective Narrative: Patient reports that she is doing well. Her lochia is decreasing appropriately. She has voided successfully. She has passed flatus. She has been out of bed 3 times thus far. She is , still working on a good latch. Exam Vital Signs (past 8 hours): Oxygen Delivery Method Room Air Resp Auscultation: clear to auscultation bilaterally Cardio Rate: regular rate Rhythm: regular rhythm Heart Sounds: S1 normal, S2 normal and no murmurs GI Inspection: non-distended and incision (dressing c/d/i) Palpation: soft, No guarding and tender (appropriately tender) Auscultation: normal bowel sounds Other: fundus firm and below the umbilicus Extrem Other: 1+ pitting edema bilaterally Objective Labs 01/25/23 06:12 Labs: Laboratory Results - last 24 hr 01/25/23 06:12 WBC 11.8 H RBC 3.45 L Hgb 11.8 L Hct 33.6 L MCV 97.3 MCH 34.1 H MCHC 35.0 RDW 13.9 Plt Count 176 Neut % (Auto) 79.0 H Lymph % (Auto) 12.6 L [place] % (Auto) 7.3 Eos % (Auto) 0.5 L Baso % (Auto) 0.6 Neut # (Auto) 9300 H Lymph # (Auto) 1500 [place] # (Auto) 900 Eos # (Auto) 100 Baso # (Auto) 100 Assessment & Plan Plan Comments: Pt is a 22yo POD#1 s/p primary for failure to descend and failed vacuum without complications. complicated by gestational hypertension, BPs all in good range since delivery. Pt doing well. - Normal care - support Time Spent With Patient Time: Total time spent is greater than 50% in coordination of care (as documented) at patient's floor/unit and/or counseling patient: Time with patient: less than 15 minutes
[2023-01-25] MEDS: IBUPROFEN 600 MG TABLET PO ×2 (12:19→18:20)
[2023-01-25] MEDS: SERTRALINE 50 MG TABLET 25 MG PO (20:57)
[2023-01-26] MEDS: IBUPROFEN 600 MG TABLET PO ×2 (00:47→06:48)
[2023-01-26] MEDS: ACETAMINOPHEN 325 MG TABLET 650 MG PO ×2 (02:45→08:32)
[2023-01-26] MEDS: OXYCODONE IR 5 MG TABLET PO ×3 (02:47→10:51)
[2023-01-26] MEDS: DOCUSATE 100 MG CAPSULE PO (08:31)
[2023-01-26] MEDS: PRENATAL VIT,CALC/IRON/FOLIC 1 TABLET 1 TAB PO (08:31)
[2023-01-26] MEDS: LANOLIN OINT 7 GM 1 APPLIC TOP (08:33)
--- NOTE | 2023-01-26 12:31 | PM.OBDS.1 ---
Discharge Providers Provider Date of admission: 01/22/23 20:36 Discharge Date: 01/26/23 Primary care physician: Mariana GRAJEDA Provider Consults: 01/24/23 11:28 Consult to Network Management Specialist Routine Comment: Discharge provider: Crystal Prater MD Summary Hospital Course Date Patient Seen: 01/26/23 Diagnoses: 37w3d gestation GBS negative Rh positive Gestational hypertension Depression Failure to descend Failed vacuum attempt Hospital Course: The pt presented for IOL for gestational hypertension. She received cytotec followed by pitocin. AROM was performed with clear fluid present. She progressed to complete dilation. After 4hrs of pushing, due to maternal exhaustion the decision was made to proceed with vacuum-assisted vaginal delivery. After 3 pop-offs and with evidence of turtling of the head, there was concern for potential shoulder dystocia and the pt underwent primary for delivery. A viable baby girl was delivered without complications. , there were no complications. At the time of discharge she was voiding, ambulating, and passing flatus without difficulty. Her lochia was decreasing appropriately. Her pain was well controlled. She was with improved latch after frenotomy. She will f/u in 6 weeks for check. Peripartum Data Infant Delivery Method: Section Procedures: Primary complications: none 1: Gender: Female Disposition of : home Discharge Diagnosis (1) Failure of descent in labor, delivered, current hospitalization: Status: Acute (2) Gestational hypertension: Status: Acute (3) Depression: Status: Acute (4) Polycystic kidney disease: Status: Acute (5) S/P : Status: Acute Status at Discharge Cognitive/behavioral status at discharge: oriented Functional status at discharge: independent ambulation Overall status at discharge: patient is progressing back to baseline Time Spent with Patient Time attestation: Total time spent providing and/or coordinating discharge services: Objective Labs 01/25/23 06:12 Exam Vital Signs (past 8 hours): Oxygen Delivery Method Room Air Resp Auscultation: clear to auscultation bilaterally Cardio Rate: regular rate Rhythm: regular rhythm Heart Sounds: S1 normal, S2 normal and no murmurs GI Inspection: non-distended and incision (dressing c/d/i) Palpation: soft, No guarding and tender (appropriately tender) Auscultation: normal bowel sounds Other: fundus firm and below the umbilicus Extrem General: pedal edema Discharge Plan Discharge Plan Patient Disposition: Home Discharge orders & Medications Prescriptions: New acetaminophen 325 mg Tablet 650 mg PO Q6H Qty: 60 0RF docusate sodium 100 mg Capsule 100 mg PO DAILY Qty: 30 0RF ibuprofen 600 mg Tablet 600 mg PO Q6H Qty: 90 0RF oxycodone 5 mg Tablet 5 mg PO Q4H PRN (Reason: Pain, Moderate (4-6)) Qty: 40 0RF Continued prenat.vits,melissa,[id number] Tablet 1 tab PO DAILY sertraline 25 mg tablet 25 mg PO DAILY Discontinued labetalol 100 mg tablet 200 mg PO BID Follow up/Referrals: ProviderMariana [Primary Care Provider] - (Follow up with Dr. Prater on 02/02/2023 @ 1000 for incision check) Crystal Prater MD [Physician] - 02/02/23 10:00 am Diet/Activity/Treatments Diet: Diet as Tolerated and Regular Skin/Wound/Dressing Care Report to your healthcare provider any signs of infection, such as:: chills, fever, increased pain and unusual drainage Visit Report/Discharge Packet Instructions: DI for Stand Alone Forms: Discharge: Care, Patient Portal/API, Stroke Signs & Symptoms Discharge Data Primary Care Provider: ProviderMariana Discharges patient from system. Discharge Date/Time: 01/26/23 13:40
[2023-01-26 12:49] VITALS: BP 139/78; PULSE 75; RESP 14; TEMP 36.6
== END 2023-01-26 13:40 | disposition home or self-care (01) | DRG 788 ==
PROVIDERS: Admitting Provider Family Medicine; Referring Provider Family Medicine; Visit Provider Family Medicine
PROC: 10D00Z1 Extraction of Products of Conception, Low, Open Approach (ICD-10-PCS; CPT 59514; principal; 2023-01-24 08:45)
DX: O13.4 Gestational [pregnancy-induced] hypertension without significant proteinuria, complicating childbirth (principal); O64.8XX0 Obstructed labor due to other malposition and malpresentation, not applicable or unspecified; O66.5 Attempted application of vacuum extractor and forceps; Z3A.37 37 weeks gestation of pregnancy; Z37.0 Single live birth; Z67.40 Type O blood, Rh positive; O99.284 Endocrine, nutritional and metabolic diseases complicating childbirth; E28.2 Polycystic ovarian syndrome
CPT/HCPCS: 36415; 59050; 59200; 59510; 59514; 85025; 86850; 86900; 86901; G0379; J0690; J1200; J1885; J2274; J2405; J2590; J3010

== ENCOUNTER → 2023-02-11 15:54 | Outpatient (CLI) | payer OTHER, SELFPAY ==
[2023-02-11 16:52] LABS: Add Manual Diff / Slide Review NO; Basophils Absolute Auto 100 /uL (0-100); Basophils Percent Auto 1.4 % (0-2); Eosinophils Absolute Auto 100 /uL (0-450); Eosinophils Percent Auto 1.8 % (2-4); Hematocrit 39.7 % (36-46); Hemoglobin 13.5 g/dL (12.0-16.0); Lymphocytes Absolute Auto 1900 /uL (1100-4500); Lymphocytes Percent Auto 30.4 % (25-40); Monocytes Absolute Auto 400 /uL (0-900); Monocytes Percent Auto 7.1 % (3-14); Neutrophils Absolute Auto 3700 /uL (1500-7000); Neutrophils Percent Auto 59.3 % (50-75); Platelet Count 381 X10^3/uL (150-400); Red Blood Cell Count 4.09 X10^6/uL (4.0-5.2); Red Cell Distribution Width 13.3 % (11.6-14.8); White Blood Cell Count 6.3 X10^3/uL (4.5-11.0)
[2023-02-11 17:25] LABS: Alanine Aminotransferase 62 IU/L (<35); Albumin 3.8 g/dL (3.5-5.0); Albumin Globulin Ratio 1.4 (1.0-2.8); Alkaline Phosphatase 99 U/L (38-126); Aspartate Aminotransferase 45 IU/L (14-36); BUN Creatinine Ratio 14.8 (6-22); Bilirubin Total 0.9 mg/dL (0.2-1.3); Blood Urea Nitrogen 12 mg/dL (7-17); Calcium 9.4 mg/dL (8.4-10.2); Carbon Dioxide 22 mmol/L (22-32); Chloride 105 mmol/L (98-107); Estimated Glomerular Filt Rate > 60 mL/min (>60); Globulin 2.8 g/dL (1.7-4.1); Glucose 97 mg/dL (70-100); HEMOLYSIS < 15 (0-50); Potassium 4.2 mmol/L (3.4-5.1); Sodium 137 mmol/L (137-145); Total Protein 6.6 g/dL (6.3-8.2)
[2023-02-11 20:03] LABS: Creatinine Urine Random 112.7 mg/dL; Protein (Total) Urine Random 18 mg/dL (0-12); Protein Creatinine Ratio Urine 0.15 GRAM/24H
== END ==
PROVIDERS: Referring Provider Family Medicine; Visit Provider Family Medicine
DX: O13.9 Gestational [pregnancy-induced] hypertension without significant proteinuria, unspecified trimester (principal)
CPT/HCPCS: 36415; 80053; 82570; 84156; 85025

== ENCOUNTER 2023-03-17 22:25 | Observation (INO) | payer OTHER, SELFPAY ==
[2023-03-17 22:33] VITALS: BP 136/95; PULSE 100; RESP 19; TEMP 37.5; O2SAT 100; BMI 32.5
[2023-03-17 22:53] LABS: Add Manual Diff / Slide Review NO; Basophils Absolute Auto 100 /uL (0-100); Basophils Percent Auto 0.7 % (0-2); Eosinophils Absolute Auto 0 /uL (0-450); Eosinophils Percent Auto 0.3 % (2-4); Hematocrit 40.4 % (36-46); Hemoglobin 13.6 g/dL (12.0-16.0); Lymphocytes Absolute Auto 1900 /uL (1100-4500); Lymphocytes Percent Auto 17.4 % (25-40); Mean Corpuscular HGB Conc 33.5 % (30-36); Mean Corpuscular Hemoglobin 32.2 PG (26-34); Monocytes Absolute Auto 700 /uL (0-900); Neutrophils Absolute Auto 8300 /uL (1500-7000); Neutrophils Percent Auto 75.6 % (50-75); Platelet Count 270 X10^3/uL (150-400); Red Blood Cell Count 4.21 X10^6/uL (4.0-5.2); Red Cell Distribution Width 13.1 % (11.6-14.8)
[2023-03-17 23:00] LABS: Alanine Aminotransferase 46 IU/L (<35); Albumin 4.3 g/dL (3.5-5.0); Albumin Globulin Ratio 1.2 (1.0-2.8); Alkaline Phosphatase 99 U/L (38-126); Aspartate Aminotransferase 31 IU/L (14-36); BUN Creatinine Ratio 12.5 (6-22); Bilirubin Total 1.3 mg/dL (0.2-1.3); Blood Urea Nitrogen 10 mg/dL (7-17); Calcium 9.5 mg/dL (8.4-10.2); Carbon Dioxide 26 mmol/L (22-32); Chloride 100 mmol/L (98-107); Estimated Glomerular Filt Rate > 60 mL/min (>60); Globulin 3.5 g/dL (1.7-4.1); Glucose 115 mg/dL (70-100); HEMOLYSIS < 15 (0-50); Lipase 34 U/L (23-300); Potassium 3.5 mmol/L (3.4-5.1); Sodium 138 mmol/L (137-145); Total Protein 7.8 g/dL (6.3-8.2)
--- NOTE | 2023-03-17 23:04 | DI.US.S_ITS ---
PROCEDURE: US PELVIC COMPLETE INDICATIONS: Right lower quadrant abdominal pain. TECHNIQUE: Real-time scanning was performed of the pelvic organs, with image documentation. Additional endovaginal scanning was necessary due to incomplete visualization of the adnexal and endometrial structures by transabdominal scanning. COMPARISON: [facility], CT, CT ABDOMEN PELVIS W CON, 03/17/2023, 23:13. FINDINGS: Uterus: Uterus is anteverted measuring 9.4 x 4.6 x 6.8 cm. The myometrium is homogeneous. The endometrium measures 5.3 mm combined thickness. There is an IUD in uterine cavity. Ovaries: The right ovary measures 2.2 x 3.3 x 2.9 cm, with a calculated ovarian volume of 11.0 cc. The left ovary measures 1.5 x 3.0 x 1.8 cm, with a calculated ovarian volume of 4.3 cc. The ovaries have a normal sonographic appearance. Less than 12 follicles can be seen in each ovary. No adnexal masses are seen. There is a 1.8 x 1.2 x 0.8 cm cyst in the right ovary. A 5.7 x 1.7 x 1.5 cm tubular structure is noted in the pelvis near the right adnexa, which is noncompressible. There is increased wall thickness and vascularity. This correlates with CT finding of acute appendicitis. Other: Small free abdominal or pelvic fluid. IMPRESSION: 1. Acute appendicitis. 2. Normal uterus and ovaries bilaterally. 3. A small amount of free fluid in pelvis, nonspecific. We strive to produce accurate, complete, and clear reports of imaging services. To assist us in improving patient care, this report was composed using standard report templates and voice recognition software. Therefore, it may contain abnormal punctuation, insertions and/or omissions. Occasional wrong-word or sound-alike substitutions may occur. Though we review the report and make efforts to correct it, we do recommend that the report be read carefully in proper context to recognize any text inaccuracies. Dictated by: Julianna Judge M.D. on 03/18/2023 at 0:03 Approved by: Julianna Judge M.D. on 03/18/2023 at 0:07
--- NOTE | 2023-03-17 23:04 | ED.ABDPAIN ---
HPI - Abdominal Pain General Chief Complaint: Abdominal Pain Stated Complaint: abd pain x 2 days, vomiting, fever Time Seen by Provider: 03/17/23 23:01 Source: patient Mode of arrival: Ambulatory History of Present Illness HPI narrative: Patient healthy 22-year-old female by 01/24/2023 currently presenting today with abdominal pain for last 2-3 days. She has had some fever. She reports pain that started on the right side moved of the middle and then went up into her abdomen. Her walker to move. She has had decreased appetite. She is low-grade temperature here 99.5. Denies painful frequent urination. Related Data Previous Rx's Medication Instructions Recorded electric breast pump #1 ea 02/06/23 sertraline 50 mg tablet 50 mg PO DAILY #30 tabs 03/06/23 Allergies Allergy/AdvReac Type Severity Reaction Status Date / Time No Known Drug Allergies Allergy Unverified 03/11/23 13:41 Patient History Medical History (Updated 03/18/23 @ 01:56 by Raine Aguayo DO) Acne Seasonal allergies Polycystic kidney disease LGSIL on Pap smear of cervix Surgical History (Updated 01/26/23 @ 12:33 by Crystal Prater MD) [place] teeth extracted (~2018) History of removal of skin mole Family History (Updated 06/16/22 @ 15:59 by Tracee Das RN) Mother Polycystic kidney disease Family/Other Polycystic kidney disease Grandfather Marfans syndrome Polycystic kidney disease Family/Other Marfans syndrome Grandmother Lymphoma Arthritis Grandfather Mental health problem Family/Other Marfans syndrome Sister Depression Anxiety Social History marital status: number of children: 0 household members: spouse and friend(s) lives independently: Yes caregiver/support person: No housing: house pets and animals: Yes education level: college occupational status: employed current occupational exposures/hazards: Yes (exposure in the building, but no contact Hazmat duties while ) special elizabeth needs: No travel history: recent seatbelt use: always helmet use: Yes water heater temp set < 120 deg: Yes working smoke detector in home: Yes fire extinguisher in home: Yes carbon monox detector in home: Yes firearms in home: Yes (some locked up, not all) do you feel safe at home: Yes Smoking Status: Current every day smoker second hand exposure: Yes (roommate vapes) alcohol intake: former substance use type: does not use during the past year weight has: increased > 10 lbs well-balanced diet: about half the time daily servings fruits/ve-4 caffeine: Yes (<100mg/day) Type(s) of exercise: walking frequency: 3-4 times per week duration: 30-45 minutes/day Smoking Status: Former smoker Substance Use Type: does not use Exam Initial Vital Signs Initial Vital Signs: Vital Signs Temperature 99.5 F 03/17/23 22:33 Pulse Rate 100 H 03/17/23 22:33 Respiratory Rate 19 03/17/23 22:33 Blood Pressure 136/95 H 03/17/23 22:33 Pulse Oximetry 100 03/17/23 22:33 Oxygen Delivery Method Room Air 03/17/23 22:33 GENERAL: Alert well-appearing 22-year-old female HEENT: Head atraumatic,EOMI, pupils reactive, face symmetric, moist mucous membranes CARDIOVASCULAR: Regular rate and rhythm without murmurs, rubs or gallops. RESPIRATORY: Breath sounds equal bilaterally, no wheezes rales or rhonchi. ABDOMEN: Soft, tender right lower quadrant mild guarding no rebound : No CVA tenderness EXTREMITIES: Normal range of motion, no clubbing or edema. Neurovascularly intact NEUROLOGICAL: Alert and oriented x4.Normal gait and speech. SKIN: Warm, dry, no laceration, no petechiae, no rashes or lesions. Course Orders Ordered: ED Orders 03/17/23 22:36 EKG-12 Lead Stat 03/17/23 22:44 Complete Blood Count AUTO DIFF Stat Comprehensive Metabolic Panel Stat Lipase Stat 03/17/23 23:04 CT abdomen pelvis w con Stat US pelvic complete Stat 03/17/23 23:44 Test Serum,Qual Stat Acetaminophen (Acetaminophen 325 Mg Tablet) 650 mg PO Q6H KLAUS Celecoxib (Celecoxib 200 Mg Capsule) 200 mg PO BID KLAUS Gabapentin (Gabapentin 100 Mg Capsule) 300 mg PO TID KLAUS Sodium Chloride (Normal Saline 0.9%) 1,000 mls @ 100 mls/hr IV CONT KLAUS Last Admin: 03/18/23 01:40 Dose: 100 mls/hr Documented By: AM Piperacillin Sod/Tazobactam (Sod 3.375 gm/ Sodium Chloride) 100 mls @ 25 mls/hr IV Q8H KLAUS Morphine Sulfate (Morphine 4 Mg/Ml Inj) 3 mg IV Q4HR PRN PRN Reason: Pain, Severe (7-10) Naloxone HCl (Naloxone 0.4 Mg/Ml Vial) 0.2 mg IV Q2MIN PRN PRN Reason: Opiate Reversal Ondansetron HCl (Ondansetron 4 Mg Odt) 4 mg PO NOW PRN PRN Reason: Nausea And Vomiting Ondansetron HCl (Ondansetron 4 Mg/2 Ml Inj) 4 mg IV NOW PRN PRN Reason: Nausea And Vomiting Ondansetron HCl (Ondansetron 4 Mg/2 Ml Inj) 4 mg IV Q8HR PRN PRN Reason: Nausea And Vomiting Oxycodone HCl (Oxycodone Ir 5 Mg Tablet) 5 mg PO Q3H PRN PRN Reason: Pain, Moderate (4-6) Discontinued Medications Piperacillin Sod/Tazobactam (Sod 4.5 gm/ Sodium Chloride) 100 mls @ 200 mls/hr IV NOW ONE Stop: 03/18/23 00:21 Last Infusion: 03/18/23 01:16 Dose: Infused Documented By: Admin: 03/18/23 00:32 Dose: 200 mls/hr Documented By: JULIANN Ketorolac Tromethamine (Ketorolac 30 Mg/Ml Vial) 15 mg IV NOW ONE Stop: 03/17/23 23:05 Last Admin: 03/17/23 23:40 Dose: 15 mg Documented By: JULIANN Scopolamine (Scopolamine 1 Patch) 1 patch TOP NOW ONE Stop: 03/18/23 01:15 Vital Signs Vital signs: Vital Signs - 8 hr 03/17/23 22:33 03/18/23 01:00 Temperature 99.5 F Pulse Rate 100 H 92 H Respiratory Rate 19 16 Blood Pressure 136/95 H 134/89 Pulse Oximetry 100 99 Oxygen Delivery Method Room Air Room Air MDM - Abdominal Pain Lab Data 03/17/23 22:44 03/17/23 22:44 Labs: Lab Results 03/17/23 03/17/23 Range/Units 22:44 23:44 WBC 11.0 (4.5-11.0) X10^3/uL RBC 4.21 (4.0-5.2) X10^6/uL Hgb 13.6 (12.0-16.0) g/dL Hct 40.4 (36-46) % MCV 96.0 (80-100) fL MCH 32.2 (26-34) PG MCHC 33.5 (30-36) % RDW 13.1 (11.6-14.8) % Plt Count 270 (150-400) X10^3/uL Neut % (Auto) 75.6 H (50-75) % Lymph % (Auto) 17.4 L (25-40) % [place] % (Auto) 6.0 (3-14) % Eos % (Auto) 0.3 L (2-4) % Baso % (Auto) 0.7 (0-2) % Neut # (Auto) 8300 H (4431-8000) /uL Lymph # (Auto) 1900 (1100-2790) /uL [place] # (Auto) 700 (0-900) /uL Eos # (Auto) 0 (0-450) /uL Baso # (Auto) 100 (0-100) /uL Sodium 138 (137-145) mmol/L Potassium 3.5 (3.4-5.1) mmol/L Chloride 100 (98-107) mmol/L Carbon Dioxide 26 (22-32) mmol/L BUN 10 (7-17) mg/dL Creatinine 0.80 (0.52-1.04) mg/dL Estimated GFR > 60 (>60) mL/min BUN/Creatinine Ratio 12.5 (6-22) Glucose 115 H (70-100) mg/dL Calcium 9.5 (8.4-10.2) mg/dL Total Bilirubin 1.3 (0.2-1.3) mg/dL AST 31 (14-36) IU/L ALT 46 H (<35) IU/L Alkaline Phosphatase 99 (38-126) U/L Total Protein 7.8 (6.3-8.2) g/dL Albumin 4.3 (3.5-5.0) g/dL Globulin 3.5 (1.7-4.1) g/dL Albumin/Globulin Ratio 1.2 (1.0-2.8) Lipase 34 (23-300) U/L Serum , Qual Negative (Negative) Point of care testing: Point of Care Testing Test Results Negative Urine Dip Bedside Urine Glucose Negative Bedside Urine Bilirubin - Negative Bedside Urine Ketone - Negative Urine Specific [place] 1.005 Bedside Urine Occult Blood - Negative Bedside Urine pH 6 Bedside Urine Protein - Negative Bedside Urine Urobilinogen - Negative Bedside Urine Nitrite - Negative Bedside Urine Leukocytes - Negative Esterase Imaging Data CT scan - abdomen/pelvis: Radiologist's Impression: ADDENDUMThis report includes an Addendum and supersedes previous reports for this exam. PROCEDURE: CT ABDOMEN PELVIS W CON INDICATIONS: rlq pain TECHNIQUE: After the administration of oral and IV contrast, axial sections were acquired from the lung bases to the pubic symphysis. Coronal and sagittal reformats were performed. For radiation dose reduction, the following was used: automated exposure control, adjustment of mA and/or kV according to patient size. COMPARISON: [facility], , PELVIC COMPLETE, 03/17/2023, 23:10. FINDINGS: Image quality: Excellent. Lung bases: Unremarkable. Small hiatal hernia. Heart: No significant findings. ABDOMEN: Liver: Unremarkable. Gallbladder: Unremarkable. Biliary ducts: Unremarkable. Pancreas: Unremarkable. Spleen: Unremarkable. Adrenal Glands: Unremarkable. Kidneys and Ureters: There are numerous cysts in kidneys bilaterally. No renal stones or hydronephrosis.. Stomach and Bowel: Appendix is markedly thickened measuring 18 mm in diameter. There is appendiceal wall thickening and periappendiceal stranding, consistent with acute appendicitis. Appendix is retrocecal and in deep pelvis adjacent to the right adnexa. There is a 2 mm appendicoliths at the base of the appendix. Stomach, small bowel loops, and colon are normal in caliber. Peritoneum: There is a small amount of ascites in the right lower quadrant. A small rim enhancing fluid collection in the right lower quadrant measures 1.1 x 2.2 cm, suspicious for a small abscess. No free air. Ventral Wall: No hernia. Abdominal Nodes: No retroperitoneal or mesenteric adenopathy by size criteria. Vessels: Aorta and inferior vena cava are normal in size. PELVIS: Pelvic Organs: There is an IUD in uterus. Ovaries are not well seen. There is a small amount of free fluid in the cul-de-sac and adnexa. Bladder: Unremarkable. Pelvic Nodes: No enlarged lymph nodes. Miscellaneous: No inguinal hernias are seen. Bones: Unremarkable. IMPRESSION: 1. The CT findings are consistent with acute appendicitis. Appendix is markedly enlarged measuring 18 mm in diameter. There is appendiceal wall thickening and periappendiceal stranding. A small rim enhancing fluid collection is seen in the right lower quadrant, suspicious for a small periappendiceal abscess. Because of its location near the right adnexa, a differential diagnosis is a right ovarian cyst. 2. Ovaries are not well seen. There is a small amount of free fluid in the cul-de-sac and adnexa bilaterally. Please see separate pelvic ultrasound report. The result was discussed with Dr. Aguayo. Dictated by: Julianna Judge M.D. on 03/17/2023 at 23:52 Approved by: Julianna Judge M.D. on 03/18/2023 at 0:02 ADDENDUM: As noted in the body of the report, there are numerous renal cysts bilaterally, suggesting polycystic kidneys. Dictated by: Julianna Judge M.D. on 03/18/2023 at 0:08 Approved by: Julianna Judge M.D. on 03/18/2023 at 0:09 Addendum Dictated By: Julianna Judge MD Addendum Signed By: Addendum Cosigned By: DD/ /09/8 TD/TT: 03/18/2306/09/8 PROCEDURE: CT ABDOMEN PELVIS W CON INDICATIONS: rlq pain TECHNIQUE: After the administration of oral and IV contrast, axial sections were acquired from the lung bases to the pubic symphysis. Coronal and sagittal reformats were performed. For radiation dose reduction, the following was used: automated exposure control, adjustment of mA and/or kV according to patient size. COMPARISON: [facility], , [place] PELVIC COMPLETE, 03/17/2023, 23:10. FINDINGS: Image quality: Excellent. Lung bases: Unremarkable. Small hiatal hernia. Heart: No significant findings. ABDOMEN: Liver: Unremarkable. Gallbladder: Unremarkable. Biliary ducts: Unremarkable. Pancreas: Unremarkable. Spleen: Unremarkable. Adrenal Glands: Unremarkable. Kidneys and Ureters: There are numerous cysts in kidneys bilaterally. No renal stones or hydronephrosis.. Stomach and Bowel: Appendix is markedly thickened measuring 18 mm in diameter. There is appendiceal wall thickening and periappendiceal stranding, consistent with acute appendicitis. Appendix is retrocecal and in deep pelvis adjacent to the right adnexa. There is a 2 mm appendicoliths at the base of the appendix. Stomach, small bowel loops, and colon are normal in caliber. Peritoneum: There is a small amount of ascites in the right lower quadrant. A small rim enhancing fluid collection in the right lower quadrant measures 1.1 x 2.2 cm, suspicious for a small abscess. No free air. Ventral Wall: No hernia. Abdominal Nodes: No retroperitoneal or mesenteric adenopathy by size criteria. Vessels: Aorta and inferior vena cava are normal in size. PELVIS: Pelvic Organs: There is an IUD in uterus. Ovaries are not well seen. There is a small amount of free fluid in the cul-de-sac and adnexa. Bladder: Unremarkable. Pelvic Nodes: No enlarged lymph nodes. Miscellaneous: No inguinal hernias are seen. Bones: Unremarkable. IMPRESSION: 1. The CT findings are consistent with acute appendicitis. Appendix is markedly enlarged measuring 18 mm in diameter. There is appendiceal wall thickening and periappendiceal stranding. A small rim enhancing fluid collection is seen in the right lower quadrant, suspicious for a small periappendiceal abscess. Because of its location near the right adnexa, a differential diagnosis is a right ovarian cyst. 2. Ovaries are not well seen. There is a small amount of free fluid in the cul-de-sac and adnexa bilaterally. Please see separate pelvic ultrasound report. The result was discussed with Dr. Aguayo. Dictated by: Julianna Judge M.D. on 03/17/2023 at 23:52 Approved by: Julianna Judge M.D. on 03/18/2023 at 0:02 US - NASCAR DRIVER: Radiologist's Impression: PROCEDURE: US PELVIC COMPLETE INDICATIONS: Right lower quadrant abdominal pain. TECHNIQUE: Real-time scanning was performed of the pelvic organs, with image documentation. Additional endovaginal scanning was necessary due to incomplete visualization of the adnexal and endometrial structures by transabdominal scanning. COMPARISON: [facility], CT, CT ABDOMEN PELVIS W CON, 03/17/2023, 23:13. FINDINGS: Uterus: Uterus is anteverted measuring 9.4 x 4.6 x 6.8 cm. The myometrium is homogeneous. The endometrium measures 5.3 mm combined thickness. There is an IUD in uterine cavity. Ovaries: The right ovary measures 2.2 x 3.3 x 2.9 cm, with a calculated ovarian volume of 11.0 cc. The left ovary measures 1.5 x 3.0 x 1.8 cm, with a calculated ovarian volume of 4.3 cc. The ovaries have a normal sonographic appearance. Less than 12 follicles can be seen in each ovary. No adnexal masses are seen. There is a 1.8 x 1.2 x 0.8 cm cyst in the right ovary. A 5.7 x 1.7 x 1.5 cm tubular structure is noted in the pelvis near the right adnexa, which is noncompressible. There is increased wall thickness and vascularity. This correlates with CT finding of acute appendicitis. Other: Small free abdominal or pelvic fluid. IMPRESSION: 1. Acute appendicitis. 2. Normal uterus and ovaries bilaterally. 3. A small amount of free fluid in pelvis, nonspecific. [facility] Narrative Medical decision making narrative: Patient healthy 22-year-old female 7 weeks presents today with 2 days of lower abdominal pain with low-grade fever some nausea and decreased. She is quite tender certainly concern for appendicitis. Ultrasound was done is rule out any sort of ovarian cyst. Acute appendicitis is identified on ultrasound but CT was done before results came back both show acute appendicitis. CT concerning for small periappendiceal abscess. Patient has no leukocytosis he is not requiring anything for pain. Multiple attempts to get a hold of Dr. Garcia phone not working. Finally she texted back agrees with admission agrees with Sarah will see her in the morning and put in orders. Discharge Plan Departure Patient Disposition: Admitted As Inpatient Clinical Impression: Acute appendicitis Admit Date/Time: 03/18/23 01:03 Admit Provider: Kathy Garcia
[2023-03-17] MEDS: KETOROLAC 30 MG/ML VIAL 15 MG IV (23:40)
[2023-03-17 23:51] LABS: Pregnancy Test Serum,Qual Negative (Negative)
[2023-03-18] MEDS: PIPERACILLIN/TAZO 4.5 GM in SODIUM CHLORIDE 0.9% 100 ML IV (00:32)
[2023-03-18 01:00] VITALS: BP 134/89; PULSE 92; RESP 16; O2SAT 99
[2023-03-18] MEDS: SODIUM CHLORIDE 0.9% 1,000 ML 100 ML IV ×3 (01:40→20:38)
[2023-03-18 01:42] VITALS: BMI 33.1
[2023-03-18 01:44] VITALS: BP 138/85; PULSE 91; RESP 19; TEMP 36.5; O2SAT 97
[2023-03-18] MEDS: ACETAMINOPHEN 325 MG TABLET 650 MG PO ×4 (01:56→21:26)
[2023-03-18] MEDS: GABAPENTIN 100 MG CAPSULE 300 MG PO ×4 (02:10→21:26)
[2023-03-18] MEDS: SCOPOLAMINE 1 PATCH TOP (02:10)
[2023-03-18] MEDS: PIPERACILLIN/TAZO 3.375 GM in SODIUM CHLORIDE 0.9% 100 ML IV ×3 (05:13→21:25)
[2023-03-18 07:14] LABS: Add Manual Diff / Slide Review NO; Basophils Absolute Auto 0 /uL (0-100); Basophils Percent Auto 0.5 % (0-2); Eosinophils Absolute Auto 100 /uL (0-450); Eosinophils Percent Auto 0.9 % (2-4); Hematocrit 36.8 % (36-46); Hemoglobin 12.3 g/dL (12.0-16.0); Lymphocytes Absolute Auto 2200 /uL (1100-4500); Mean Corpuscular HGB Conc 33.5 % (30-36); Mean Corpuscular Hemoglobin 32.3 PG (26-34); Mean Corpuscular Volume 96.3 fL (80-100); Monocytes Absolute Auto 500 /uL (0-900); Monocytes Percent Auto 8.3 % (3-14); Neutrophils Absolute Auto 3800 /uL (1500-7000); Neutrophils Percent Auto 57.3 % (50-75); Platelet Count 221 X10^3/uL (150-400); Red Blood Cell Count 3.82 X10^6/uL (4.0-5.2); Red Cell Distribution Width 13.3 % (11.6-14.8); White Blood Cell Count 6.6 X10^3/uL (4.5-11.0)
[2023-03-18 09:09] VITALS: BP 112/80; PULSE 73; RESP 16; TEMP 36.6; O2SAT 99
[2023-03-18] MEDS: CELECOXIB 200 MG CAPSULE PO ×2 (09:32→21:27)
[2023-03-18] MEDS: OXYCODONE IR 5 MG TABLET PO ×3 (09:36→21:27)
--- NOTE | 2023-03-18 10:53 | PM.HP.1 ---
History of Present Illness History of Present Illness Date Patient Seen: 03/18/23 Time Patient Seen: 10:53 Chief complaint: abd pain x 2 days, vomiting, fever Narrative: appendicitis, possible rupture. Seven weeks S/P C section currently breast feeding. Pain RLQ is improved most noticeable with palpation. no nausea. no fever or chillls. [facility] Medical History Acne Seasonal allergies Polycystic kidney disease LGSIL on Pap smear of cervix Surgical History [place] teeth extracted (~2018) History of removal of skin mole Family History Mother Polycystic kidney disease Family/Other Polycystic kidney disease Grandfather Marfans syndrome Polycystic kidney disease Family/Other Marfans syndrome Grandmother Lymphoma Arthritis Grandfather Mental health problem Family/Other Marfans syndrome Sister Depression Anxiety Social History marital status: number of children: 0 household members: spouse and friend(s) lives independently: Yes caregiver/support person: No housing: house pets and animals: Yes education level: college occupational status: employed current occupational exposures/hazards: Yes (exposure in the building, but no contact Hazmat duties while ) special elizabeth needs: No travel history: recent seatbelt use: always helmet use: Yes water heater temp set < 120 deg: Yes working smoke detector in home: Yes fire extinguisher in home: Yes carbon monox detector in home: Yes firearms in home: Yes (some locked up, not all) do you feel safe at home: Yes Smoking Status: Current every day smoker second hand exposure: Yes (roommate vapes) alcohol intake: former substance use type: does not use during the past year weight has: increased > 10 lbs well-balanced diet: about half the time daily servings fruits/ve-4 caffeine: Yes (<100mg/day) Type(s) of exercise: walking frequency: 3-4 times per week duration: 30-45 minutes/day Meds Home Medications and Allergies Home Medications Medication Instructions Recorded Confirmed Type electric breast pump #1 ea 02/06/23 03/11/23 Rx sertraline 50 mg tablet 50 mg PO DAILY #30 tabs 03/06/23 03/18/23 Rx Allergies Allergy/AdvReac Type Severity Reaction Status Date / Time No Known Drug Allergies Allergy Unverified 03/11/23 13:41 Review of Systems Review of Systems ROS: Yes All systems reviewed with the patient and are negative except as otherwise documented Exam Vital Signs (past 8 hours): - 03/18/23 09:09 Temperature 97.9 F Pulse Rate 73 Respiratory Rate 16 Blood Pressure 112/80 Pulse Oximetry 99 Oxygen Delivery Method Room Air Oxygen Flow Rate 0 Const General: cooperative, healthy appearing and comfortable Nutritional Appearance: well nourished [facility] Head: normocephalic and atraumatic Eyes Conjunctivae: normal conjunctivae Sclera: normal sclerae Neck Neck: trachea midline Chest Chest: normal inspection of the chest Resp Effort & Inspection: normal respiratory effort and able to speak in complete sentences Cardio Rate: regular rate Rhythm: regular rhythm GI Inspection: non-distended, incision and striae Palpation: tender (RLQ tender to palpation) Skin General: turgor normal Neuro General: patient alert, patient awake and patient oriented x3 Cognition: normal cognition Psych Mental Status: mental status grossly normal Judgment: judgment good Objective Labs 03/18/23 06:56 03/17/23 22:44 Labs: Laboratory Results - last 24 hr 03/17/23 03/17/23 03/18/23 22:44 23:44 06:56 WBC 11.0 6.6 RBC 4.21 3.82 L Hgb 13.6 12.3 Hct 40.4 36.8 MCV 96.0 96.3 MCH 32.2 32.3 MCHC 33.5 33.5 RDW 13.1 13.3 Plt Count 270 221 Neut % (Auto) 75.6 H 57.3 Lymph % (Auto) 17.4 L 33.0 [place] % (Auto) 6.0 8.3 Eos % (Auto) 0.3 L 0.9 L Baso % (Auto) 0.7 0.5 Neut # (Auto) 8300 H 3800 Lymph # (Auto) 1900 2200 [place] # (Auto) 700 500 Eos # (Auto) 0 100 Baso # (Auto) 100 0 Sodium 138 Potassium 3.5 Chloride 100 Carbon Dioxide 26 BUN 10 Creatinine 0.80 Estimated GFR > 60 BUN/Creatinine Ratio 12.5 Glucose 115 H Calcium 9.5 Total Bilirubin 1.3 AST 31 ALT 46 H Alkaline Phosphatase 99 Total Protein 7.8 Albumin 4.3 Globulin 3.5 Albumin/Globulin Ratio 1.2 Lipase 34 Serum , Qual Negative Assessment & Plan Assessment & Plan narrative: Appendicitis possible rupture with fecal lith. Had C section 7 weeks ago. Treating with IV antibiotics and discussion had with patient about medical management with interval appy. Given her recent surgery, she could be higher risk of complications having surgeries so close together. Time Spent With Patient Time with patient: 30 to 49 minutes with 50% spent counseling/coordinating care
[2023-03-18] MEDS: SERTRALINE 50 MG TABLET PO (12:38)
--- NOTE | 2023-03-18 14:00 | CM.DANOTE ---
Reviewed EMR and team rounds for pt's medical status and initial anticipated d/c needs. Pt presented to the ED on 03/17/23 with worsening lower-right quadrant pain over the last 2-3 days. She is 7-weeks, is currently . CT imaging demonstrates acute appendicitis. Consult w/Dr. Garcia in surgery completed today. Plan: Continue IV ABO's the next few days, she thinks that the appendix is most likely already ruptured. If pain/swelling cont. after IV ABO's, they will revisit discussing appendectomy. Spouse very involved, cont. to monitor. Payor: Ileana Olivares Attending: Dr. Garcia Discharge Planning/Care Management CM Discharge Assessment Start: 03/18/23 13:37 Freq: Status: Active Protocol: Document 03/18/23 13:38 DPL (Rec: 03/18/23 13:40 DPL [id number]) Discharge Planning Assessment Assigned Translation Director SAI Rose Advance Directives? No History Provided By Medical Record Expected Length of Stay 3 Has Patient been admitted in last 30 No days? Prior Living Arrangements House Household Members spouse,friend(s) Type of transporation used prior to Drives own vehicle admit Independent with ADL's Yes Is patient alert and oriented? Yes Comment N/A Caregiver for Another Yes: 7-week old baby Comment N/A Comment No anticipated home d/c needs identified at this time. Barriers to Discharge No Discharge Plan Home Referrals Initiated None needed Whiteboard Updated in Patient Room with No name and ext. # of Translation Director Comment Pt was sleeping soundly, did not want to disturb her. Review Status In Process Please Provide Date Initial DC 03/18/23 Assessment Was Performed
[2023-03-18 17:00] VITALS: BP 111/69; PULSE 70; RESP 16; TEMP 37.2; O2SAT 98
[2023-03-18 21:14] VITALS: BP 111/63; PULSE 62; RESP 16; TEMP 36.6; O2SAT 97
[2023-03-19] VITALS (10 sets, daily range): BP systolic 107–140; BP diastolic 69–104; PULSE 56–76; RESP 12–16; TEMP 36.3–36.8; O2SAT 95–100; BMI 33.1
--- NOTE | 2023-03-19 | PATH_ITS ---
[facility] Accession Number: [id number] No. of containers..01 Tissue . 01 Material submitted: . appendix - APPENDIX . 01 Clinical history: . ACUTE APPENDICITIS . 01 Diagnosis: Appendix, Appendectomy: Acute appendicitis with serositis. No evidence of neoplasm. MRV 03/25/2023 1639 Local . 01 Electronically signed: . Hugo Dean MD, PhD, Pathologist NPI- [id number] . 01 Gross description: . The specimen is received in formalin labeled with the patient's name, , and appendix, consists of a meier vermiform appendix measuring 9.1 cm in length by 0.9 cm in average diameter with meier, roughened serosa with adherent material consistent with exudate and mesoappendix extending out to 1.7 cm. The margin is inked blue. Sectioning reveals a patent lumen averaging 0.3 cm in greatest dimension filled with brown, semi-solid material. The [place] average 0.5 cm thick with a small possible area of perforation measuring 0.1 cm in greatest dimension, and no lesions identified. Hand Candle Molder sections to include the surgical margin, one-half of the bisected distal tip, and cross sections to include area of possible defect are submitted in cassettes A1-A2. ([id number]) /MRV 03/20/2023 1257 Local . 01 Pathologist provided ICD-10: K35.80 . 01 CPT . 893003 Specimen Comment: A courtesy copy of this report has been sent to [phone] Performed at: [address] [facility], [place], [place] [id number] MD Faheem Mccoy MD Phone: [phone]
[2023-03-19] MEDS: OXYCODONE IR 5 MG TABLET PO ×4 (03:30→20:30)
[2023-03-19] MEDS: ACETAMINOPHEN 325 MG TABLET 650 MG PO ×4 (03:30→22:51)
[2023-03-19] MEDS: PIPERACILLIN/TAZO 3.375 GM in SODIUM CHLORIDE 0.9% 100 ML IV ×3 (04:30→22:52)
[2023-03-19] MEDS: MORPHINE 4 MG/ML INJ 3 MG IV (04:30)
[2023-03-19] MEDS: HYDROMORPHONE 1 MG INJ IV ×2 (05:10→14:03)
[2023-03-19] MEDS: SIMETHICONE 80 MG TABLET PO ×2 (05:10→22:02)
[2023-03-19] MEDS: SODIUM CHLORIDE 0.9% 1,000 ML 100 ML IV (06:18)
[2023-03-19 07:20] LABS: Add Manual Diff / Slide Review NO; Basophils Absolute Auto 0 /uL (0-100); Basophils Percent Auto 0.4 % (0-2); Eosinophils Absolute Auto 100 /uL (0-450); Hematocrit 36.6 % (36-46); Hemoglobin 12.5 g/dL (12.0-16.0); Lymphocytes Absolute Auto 1400 /uL (1100-4500); Lymphocytes Percent Auto 16.1 % (25-40); Mean Corpuscular Hemoglobin 32.8 PG (26-34); Mean Corpuscular Volume 96.3 fL (80-100); Monocytes Absolute Auto 600 /uL (0-900); Neutrophils Absolute Auto 6800 /uL (1500-7000); Neutrophils Percent Auto 75.5 % (50-75); Platelet Count 218 X10^3/uL (150-400); Red Cell Distribution Width 13.2 % (11.6-14.8)
[2023-03-19] MEDS: CELECOXIB 200 MG CAPSULE PO ×2 (08:05→20:31)
[2023-03-19] MEDS: SERTRALINE 50 MG TABLET PO (08:05)
[2023-03-19] MEDS: GABAPENTIN 100 MG CAPSULE 300 MG PO ×3 (08:05→20:30)
--- NOTE | 2023-03-19 12:02 | PC.NURSE ---
Day shift: Pt off unit for procedure at approx 1210.
--- NOTE | 2023-03-19 12:18 | P.PN_ITS ---
Subjective Subjective Date Patient Seen: 03/19/23 Time Patient Seen: 12:18 Interval history: Worsening abdominal pain overnight. Requests to proceed with surgery. Exam Vital Signs (past 8 hours): - 03/19/23 08:34 03/19/23 10:39 Temperature 98.2 F Pulse Rate 56 L Respiratory Rate 13 Blood Pressure 124/76 Pulse Oximetry 98 Oxygen Delivery Method Room Air Oxygen Delivery Method Room Air Oxygen Flow Rate 0 Narrative Exam Narrative: General adult woman alert oriented no acute distress Abdomen tender right lower quadrant no peritonitis Objective Labs 03/19/23 07:07 03/17/23 22:44 Labs: Laboratory Results - last 24 hr 03/19/23 07:07 WBC 9.0 RBC 3.80 L Hgb 12.5 Hct 36.6 MCV 96.3 MCH 32.8 MCHC 34.0 RDW 13.2 Plt Count 218 Neut % (Auto) 75.5 H Lymph % (Auto) 16.1 L Loving % (Auto) 7.0 Eos % (Auto) 1.0 L Baso % (Auto) 0.4 Neut # (Auto) 6800 Lymph # (Auto) 1400 Loving # (Auto) 600 Eos # (Auto) 100 Baso # (Auto) 0 PFSH Medical History Acne Seasonal allergies Polycystic kidney disease LGSIL on Pap smear of cervix Surgical History [place] teeth extracted (~2018) History of removal of skin mole Family History Mother Polycystic kidney disease Family/Other Polycystic kidney disease Grandfather Marfans syndrome Polycystic kidney disease Family/Other Marfans syndrome Grandmother Lymphoma Arthritis Grandfather Mental health problem Family/Other Marfans syndrome Sister Depression Anxiety Social History marital status: number of children: 0 household members: spouse and friend(s) lives independently: Yes caregiver/support person: No housing: house pets and animals: Yes education level: college occupational status: employed current occupational exposures/hazards: Yes (exposure in the building, but no contact Hazmat duties while ) special elizabeth needs: No travel history: recent seatbelt use: always helmet use: Yes water heater temp set < 120 deg: Yes working smoke detector in home: Yes fire extinguisher in home: Yes carbon monox detector in home: Yes firearms in home: Yes (some locked up, not all) do you feel safe at home: Yes Smoking Status: Current every day smoker second hand exposure: Yes (roommate vapes) alcohol intake: former substance use type: does not use during the past year weight has: increased > 10 lbs well-balanced diet: about half the time daily servings fruits/ve-4 caffeine: Yes (<100mg/day) Type(s) of exercise: walking frequency: 3-4 times per week duration: 30-45 minutes/day Assessment & Plan Assessment and plan (1) Acute appendicitis: Qualifiers: Acute appendicitis type: unspecified acute appendicitis type Qualified Code(s): K35.80 - Unspecified acute appendicitis Status: Acute Assessment & Plan narrative: 22-year-old woman with acute appendicitis failing to improve with antibiotic therapy. Again discussed management options with her including further attempt at antibiotic therapy versus appendectomy. Following discussion preference is to proceed with laparoscopic appendectomy. Overview of the operation was described operative risks including but not limited to hemorrhage, infection, conversion open were discussed. She understands that she is at somewhat higher operative risk given recent section 6 weeks ago. Questions have been answered she is in agreement with this plan. She provides her written and verbal consent to proceed.
--- NOTE | 2023-03-19 12:23 | P.OP_ITS ---
Operative Date/Time/Diagnoses Date of procedure: 03/19/23 Time of procedure: 16:07 Pre-op diagnosis: Acute appendicitis Post-op diagnosis: same Procedure & Clinicians Procedure: Laparoscopic appendectomy Same procedure as scheduled: Yes Indications: 22-year-old woman with acute appendicitis failing to improve with antibiotic therapy. Surgeon: Leopoldo Ortiz Click Yes if Unassisted: Yes Anesthesia Type: General Operative Notes Findings: Acute perforated appendicitis with free fluid in the abdomen small amount of phlegmon Specimen(s): other (Appendix) Estimated Blood Loss (mL): 10 Procedure in detail: Patient was brought to the operating room placed supine on the table. Bilateral lower extremity compression devices were applied. Anesthesia was induced and they intubated with an endotracheal tube. They received 3.375 g of Zosyn prior to skin incision. The left arm was tucked and appropriately padded. They were prepped and draped in sterile fashion. Time-out was performed. An infraumbilical incision was made the umbilical stalk was grasped and elevated and incision was made and the abdomen was entered atraumatically. A 12 mm balloon trocar was then placed through the incision and pneumoperitoneum of 14 mm Hg was established. The scope was then inserted and the abdomen inspected, there was no evidence of injury upon entry. Two 5 mm ports were placed under direct visualization, one in the left lower quadrant and second in the lower midline. A thorough laparoscopic evaluation was performed inspecting all four quadrants. There were some flimsy adhesions within the pelvis and near the umbilicus which were taken down. There was a small amount of fluid and phlegmon within the right lower quadrant consistent with perforation. The patient was then tilted right side up. The small bowel was then swept to the upper aspect of the abdomen. The tenie were followed to the base of the cecum where the appendix was identified and mobilized.. The appendix tip was significantly dilated and the appendix was perforated. The appendix was grasped and a window within the mesentery was made at the base of the appendix using the [place] dissector with care to avoid injuring the cecum. The mesoappendix was then divided using LigaSure. The appendix was then amputated flush at the cecum using the endo- stapler blue load. The specimen was retrieved using a endoscopic retrieval bag through the 10 mm infra-umbilical port. The right paracolic gutter and the pouch of Flaco were irrigated The 5 mm ports were then removed under direct visualization. The umbilical fascial incision was closed with 0 Vicryl in a figure-eight fashion. The skin wounds were irrigated and closed with 4-0 Monocryl followed by the application of Dermabond. Sponge instrument count at the end of the operation was correct. The patient tolerated procedure well was extubated and transferred to the postoperative care unit in stable condition. Complications: none Post-operative Condition: stable Disposition: Acute Care Plan for aftercare: Returned to the [facility] for further IV antibiotics, likely discharge home tomorrow on p.o. antibiotics
[2023-03-19] MEDS: LACTATED RINGERS 1,000 ML 42 ML IV (12:24)
--- NOTE | 2023-03-19 13:11 | SUR.OPER ---
Supine on padded OR bed, head on pillow, left arm padded and tucked at side, right arm extended and secured on padded armboard less than 90 * abduction, legs uncrossed, safety belt at thigh, tape over blanket over lower legs .
[2023-03-19] MEDS: BUPIVACAINE 0.25% (PF) VIAL 30 ML INJ (13:20)
--- NOTE | 2023-03-19 13:59 | PC.NURSE ---
Day shift: Pt remains off unit at this time.
[2023-03-19] MEDS: ONDANSETRON 4 MG/2 ML INJ IV (14:11)
--- NOTE | 2023-03-19 15:16 | PC.NURSE ---
Day shift: Back in room from PACU at approx 1500. 3 lap sites are CDI. Reports ABD pain 10/25. Medicated for pain per JUL. IV fluids going as ordered. Spouse and new born baby in room for support. Pt appears to be in good spirits and states I do feel a little better now. VS WNL. RA 98%. Pt also voided when back in room. Call light in reach. Denies any nausea. Will continue w/ post-op plan of care.
[2023-03-19] MEDS: DOCUSATE 100 MG CAPSULE PO (20:31)
[2023-03-19] MEDS: ONDANSETRON 4 MG ODT PO (23:07)
[2023-03-20 03:55] VITALS: BP 109/62; PULSE 58; RESP 16; TEMP 36.8; O2SAT 96
[2023-03-20] MEDS: OXYCODONE IR 5 MG TABLET PO ×2 (04:02→09:08)
[2023-03-20] MEDS: ACETAMINOPHEN 325 MG TABLET 650 MG PO ×2 (04:02→09:08)
[2023-03-20] MEDS: PIPERACILLIN/TAZO 3.375 GM in SODIUM CHLORIDE 0.9% 100 ML IV (06:59)
[2023-03-20 09:00] LABS: BUN Creatinine Ratio 15.8 (6-22); Blood Urea Nitrogen 12 mg/dL (7-17); Carbon Dioxide 25 mmol/L (22-32); Chloride 107 mmol/L (98-107); Estimated Glomerular Filt Rate > 60 mL/min (>60); Glucose 88 mg/dL (70-100); HEMOLYSIS 26 (0-50); Potassium 4.8 mmol/L (3.4-5.1); Sodium 138 mmol/L (137-145)
[2023-03-20] MEDS: CELECOXIB 200 MG CAPSULE PO (09:06)
[2023-03-20] MEDS: DOCUSATE 100 MG CAPSULE PO (09:06)
[2023-03-20] MEDS: SERTRALINE 50 MG TABLET PO (09:06)
[2023-03-20] MEDS: GABAPENTIN 100 MG CAPSULE 300 MG PO (09:09)
--- NOTE | 2023-03-20 11:55 | PC.NURSE ---
Day shift: Discharge instructions gone over with patient and patient's significant other. PIV d/c'ed prior to discharge. All questions answered, patient stated understanding. All belongings with patient. PCT escorted patient via wheelchair, significant other, and baby to exit.
--- NOTE | 2023-03-24 13:47 | PM.DS.1 ---
History of Present Illness History of Present Illness Date Patient Seen: 03/24/23 Time Patient Seen: 13:47 Chief complaint: abd pain x 2 days, vomiting, fever Narrative: 22-year-old woman who presented to the hospital with symptoms and radiographic findings consistent with acute appendicitis. CT abdomen pelvis demonstrated free fluid in the abdomen appendicitis and 2 cm rim enhancing fluid collection. Discharge Providers Provider Date of admission: 03/18/23 01:03 Discharge Date: 03/20/23 Primary care physician: Mariana GRAJEDA Provider Discharge provider: Leopoldo Ortiz MD Summary Hospital Course Discharge Diagnosis: Perforated appendicitis Hospital Course: She was trialed on antibiotic therapy given that she would perforated appendicitis with an abscess and was less than 2 months status post section. She failed to improve with antibiotic therapy and was taken to the operating room March 19 for laparoscopic appendectomy. She tolerated the operation well remained on antibiotic therapy for an additional day and then was discharged home 03/20. At discharge she is afebrile tolerant of a diet ambulatory and pain is controlled with nonnarcotic medication. She will discharge home on course of oral antibiotic. Exam Vital Signs (past 8 hours): Oxygen Delivery Method Room Air Oxygen Flow Rate 0 Narrative Exam Narrative: General adult woman alert oriented no acute distress Abdomen soft nontender nondistended. Laparoscopic port incisions clean dry intact. Objective Labs 03/19/23 07:07 03/20/23 08:36 [facility] Medical History Acne Seasonal allergies Polycystic kidney disease LGSIL on Pap smear of cervix Surgical History [place] teeth extracted (~2018) History of removal of skin mole Family History Mother Polycystic kidney disease Family/Other Polycystic kidney disease Grandfather Marfans syndrome Polycystic kidney disease Family/Other Marfans syndrome Grandmother Lymphoma Arthritis Grandfather Mental health problem Family/Other Marfans syndrome Sister Depression Anxiety Social History marital status: number of children: 0 household members: spouse and friend(s) lives independently: Yes caregiver/support person: No housing: house pets and animals: Yes education level: college occupational status: employed current occupational exposures/hazards: Yes (exposure in the building, but no contact Hazmat duties while ) special elizabeth needs: No travel history: recent seatbelt use: always helmet use: Yes water heater temp set < 120 deg: Yes working smoke detector in home: Yes fire extinguisher in home: Yes carbon monox detector in home: Yes firearms in home: Yes (some locked up, not all) do you feel safe at home: Yes Smoking Status: Current every day smoker second hand exposure: Yes (roommate vapes) alcohol intake: former substance use type: does not use during the past year weight has: increased > 10 lbs well-balanced diet: about half the time daily servings fruits/ve-4 caffeine: Yes (<100mg/day) Type(s) of exercise: walking frequency: 3-4 times per week duration: 30-45 minutes/day Discharge Plan Discharge Plan Patient Disposition: Home Provider Discharge Comment: -Okay to shower tomorrow. -Do not submerge wounds in water until seen in follow-up. -No lifting >20 lbs x 4 weeks. -Walking only for exercise for 4 weeks. -No driving while taking narcotics. Discharge orders & Medications Prescriptions: New amoxicillin-pot clavulanate [Augmentin] 500-125 mg tablet 1 tab PO BID Qty: 14 0RF oxycodone 5 mg tablet 5 mg PO Q6H PRN (Reason: pain) Qty: 10 0RF acetaminophen [Tylenol] 325 mg capsule 650 mg PO QID PRN (Reason: pain) Qty: 60 0RF Continued sertraline 50 mg tablet 50 mg PO DAILY Qty: 30 2RF (DME) electric breast pump See Rx Instructions .Route .MEDSUPPLY Qty: 1 0RF Rx Instructions: As directed Medication counseling provided by Pharmacist: Yes Follow up/Referrals: Leopoldo Ortiz MD [Physician] - Diet/Activity/Treatments Diet: Diet as Tolerated Skin/Wound/Dressing Care Report to your healthcare provider any signs of infection, such as:: chills, fever, increased pain, unusual drainage and unusual redness Visit Report/Discharge Packet Instructions: DI for an Appendectomy, DI for Prescription Opioid Use Stand Alone Forms: Patient Portal/API, Stroke Signs & Symptoms Discharge Data Primary Care Provider: Mariana Arenas Attending Provider: Kathy Garcia Admit Date/Time: 03/18/23 01:03
== END 2023-03-20 12:45 | disposition home or self-care (01) ==
LOC: ED 23:28 → AC 03-18 01:26
PROVIDERS: Surgery; Admitting Provider Surgery; Emergency Provider Emergency Medicine; Referring Provider Emergency Medicine; Visit Provider Surgery
PROC: 0DTJ4ZZ Resection of Appendix, Percutaneous Endoscopic Approach (ICD-10-PCS; CPT 44970; principal; 2023-03-19 12:15)
DX: K35.32 Acute appendicitis with perforation, localized peritonitis, and gangrene, without abscess (principal)
CPT/HCPCS: 44970; 36415; 74177; 76856; 80048; 80053; 81003; 81025; 83690; 84703; 85025; 96365; 96366; 96375; 96376; 99222; 99284; G0378; J0330; J1100; J1170; J1885; J2270; J2405; J2543; J2704; J3010; Q9967

== ENCOUNTER 2023-07-17 11:20 | Emergency (ER) | payer OTHER, SELFPAY ==
[2023-07-17 11:37] VITALS: BP 133/84; PULSE 90; RESP 18; TEMP 36.4; O2SAT 99; BMI 34.4
--- NOTE | 2023-07-17 11:42 | ED_ITS ---
<Statement entered by Abdi Butterfield MD - 07/17/23 21:14> I was available for consultation for this patient while they were in the ER but not consulted. My review of this note is my first interaction with this patient's chart. HPI - Headache General Chief Complaint: Headache Stated Complaint: congestion cough migrane nausea t-14 diarreha t-2 Time Seen by Provider: 07/17/23 11:25 Mode of arrival: Ambulatory History of Present Illness HPI Narrative: This is a 22-year-old female presenting to the emergency department complaining of sinus congestion, productive cough, headache for 2 weeks. States had 1 tactile fever. Also has had some diarrhea. Denies any significant vision changes, dizziness, speech changes. Daughter is also sick with a URI. Related Data Previous Rx's Medication Instructions Recorded electric breast pump #1 ea 02/06/23 sertraline 50 mg tablet 50 mg PO DAILY #30 tabs 03/06/23 acetaminophen 325 mg capsule 650 mg (2 x 325 mg) PO QID PRN 03/20/23 (Tylenol) pain #60 caps amoxicillin 500 mg-potassium 1 tab PO BID #14 tabs 03/20/23 clavulanate 125 mg tablet (Augmentin) oxycodone 5 mg tablet 5 mg PO Q6H PRN pain #10 tabs 03/20/23 amoxicillin 875 mg-potassium 1 tab PO BID #20 tabs 07/17/23 clavulanate 125 mg tablet Allergies Allergy/AdvReac Type Severity Reaction Status Date / Time No Known Drug Allergies Allergy Verified 07/17/23 11:40 Review of Systems Review of Systems Narrative: GENERAL: Denies chills, fatigue, malaise, fever, sweats. HEENT: Denies sinus pain, ear pain, sore throat, difficulty swallowing, dizziness. RESPIRATORY: Reports cough, sinus pain Denies dyspnea, , wheezing, hemoptysis, sputum. CARDIOVASCULAR: Denies chest pain, palpitations, orthopnea, edema, GASTROINTESTINAL: Denies nausea, vomiting, abdominal pain, diarrhea, constipation, melena. : Denies dysuria, frequency, incontinence, hematuria, urinary retention. MUSCULOSKELETAL: denies weakness, joint pain, or bony pain SKIN: Denies rash, skin lesions, or other NEUROLOGIC: Denies weakness, headache, numbness, change in speech, confusion, seizures, incoordination. PSYCHIATRIC: No concerning psychosocial issues. 12 point review of systems is negative except for those stated above Patient History Medical History (Updated 07/17/23 @ 13:25 by Vega Rosas PA-C) Acne Seasonal allergies Polycystic kidney disease LGSIL on Pap smear of cervix Surgical History [place] teeth extracted (~2018) History of removal of skin mole Family History Mother Polycystic kidney disease Family/Other Polycystic kidney disease Grandfather Marfans syndrome Polycystic kidney disease Family/Other Marfans syndrome Grandmother Lymphoma Arthritis Grandfather Mental health problem Family/Other Marfans syndrome Sister Depression Anxiety Social History marital status: number of children: 0 household members: spouse and friend(s) lives independently: Yes caregiver/support person: No housing: house pets and animals: Yes education level: college occupational status: employed current occupational exposures/hazards: Yes (exposure in the building, but no contact Hazmat duties while ) special elizabeth needs: No travel history: recent seatbelt use: always helmet use: Yes water heater temp set < 120 deg: Yes working smoke detector in home: Yes fire extinguisher in home: Yes carbon monox detector in home: Yes firearms in home: Yes (some locked up, not all) do you feel safe at home: Yes Smoking Status: Current every day smoker second hand exposure: Yes (roommate vapes) alcohol intake: former substance use type: does not use during the past year weight has: increased > 10 lbs well-balanced diet: about half the time daily servings fruits/ve-4 caffeine: Yes (<100mg/day) Type(s) of exercise: walking frequency: 3-4 times per week duration: 30-45 minutes/day Smoking Status: Current every day smoker alcohol intake frequency: holidays/special occasions only Substance Use Type: does not use Exam Narrative Exam Narrative: GENERAL: Well-developed patient, in mild distress. HEAD: Atraumatic. Normocephalic. EYES: Pupils equal round and reactive. Extraocular motions intact. No scleral icterus. No injection or drainage. ENT: Nose without bleeding, purulent drainage. Throat without erythema, tonsillar hypertrophy or exudate. Airway patent. NECK: Trachea midline. Non tender EXTREMITIES: No edema or joint tenderness. NEURO: AOx3. SKIN: No rash or erythema of visible areas Initial Vital Signs Initial Vital Signs: Vital Signs Temperature 97.6 F 07/17/23 11:37 Pulse Rate 90 07/17/23 11:37 Respiratory Rate 18 07/17/23 11:37 Blood Pressure 133/84 07/17/23 11:37 Pulse Oximetry 99 07/17/23 11:37 Oxygen Delivery Method Room Air 07/17/23 11:37 Course Orders Ordered: ED Orders 07/17/23 11:55 Respiratory Panel (Film Array) Stat Discontinued Medications Ondansetron HCl (Ondansetron 4 Mg Odt) 4 mg SL NOW ONE Stop: 07/17/23 12:25 Last Admin: 07/17/23 12:26 Dose: 4 mg Documented By: RB Vital Signs Vital signs: Vital Signs - 8 hr 07/17/23 11:37 07/17/23 12:49 Temperature 97.6 F 98.2 F Pulse Rate 90 77 Respiratory Rate 18 20 Blood Pressure 133/84 116/74 Pulse Oximetry 99 100 Oxygen Delivery Method Room Air Room Air MDM - Headache Lab Data Labs: Lab Results 07/17/23 Range/Units 11:55 Chlamy pneumoniae PCR Not detected (Not Detect) Adenovirus (PCR) Not detected (Not Detect) B.parapertussis DNA PCR Not detected (Not Detecte) Coronavirus OC43 (PCR) Not detected (Not Detect) Coronavirus HKU1 (PCR) Not detected (Not Detect) Coronavirus 229E (PCR) Not detected (Not Detect) SARS-CoV-2 (PCR) Not detected (Not Detecte) Coronavirus NL63 (PCR) Not detected (Not Detect) Human Metapneumovir PCR Not detected (Not Detect) Influenza Type A (PCR) Not detected (Not Detect) Influenza Type B (PCR) Not detected (Not Detect) M. pneumoniae (PCR) Not detected (Not Detect) Parainfluenza 1 (PCR) Not detected (Not Detect) Parainfluenza 2 (PCR) Not detected (Not Detect) Parainfluenza 3 (PCR) Not detected (Not Detect) Parainfluenza 4 (PCR) Not detected (Not Detect) RSV (PCR) Not detected (Not Detect) Entero/Rhino (PCR) Not detected (Not Detect) MDM Narrative Medical decision making narrative: ED course: This is a 22-year-old female presenting to the emergency department complaining of 2 weeks of sinus pain and pressure as well as URI symptoms. R espiratory panel came back negative. We will treat for possible bacterial sinusitis with the oral antibiotics. Has been prescribed an oral steroid in the past week with temporary relief. CC: Sinus pain Complicating co-morbidities: None Data collected from: Previous notes Medical records reviewed: Patient was seen here about 5 months ago due to acute appendicitis. approximately 6 months ago. History of polycystic kidney disease. Differential considered, but not limited to: Bacterial sinusitis, viral sinusitis, migraine Exam documented above, pertinent findings include: No significant abnormalities Lab Test results independently reviewed as above. Pertinent findings: Respiratory panel negative Imaging studies independently reviewed: None obtained Scores Used: None MIPS Elements: None Consultations: None Treatments: None obtained Re-evaluations: None Discussion: Discussed plan with the patient was comfortable with the plan Diagnosis: Acute sinusitis Disposition: see below, along with detailed discharge instructions that have been reviewed with patient as well as indications for ED re-evaluation and additional outpatient follow up Discharge Plan Departure Patient Disposition: Home Clinical Impression: Sinusitis Activity Restrictions/Additional Instructions: Thank you for coming to the [facility] Emergency Department today. Please take the oral antibiotics as prescribed Please return to the emergency department if you develop any significant new or worsening pain, high fevers, or any other concerning signs or symptoms. I hope you feel better soon. Please follow up with your primary care provider within a week if your symptoms continue. If you do not have a primary care provider please contact the [facility] Resource line at [phone]. They will ask some questions about your medical history and help you get set up with a provider in the community. Prescriptions: New amoxicillin-pot clavulanate 875-125 mg tablet 1 tab PO BID Qty: 20 0RF No Action sertraline 50 mg tablet 50 mg PO DAILY Qty: 30 2RF (DME) electric breast pump See Rx Instructions .Route .MEDSUPPLY Qty: 1 0RF Rx Instructions: As directed amoxicillin-pot clavulanate [Augmentin] 500-125 mg tablet 1 tab PO BID Qty: 14 0RF oxycodone 5 mg tablet 5 mg PO Q6H PRN (Reason: pain) Qty: 10 0RF acetaminophen [Tylenol] 325 mg capsule 650 mg PO QID PRN (Reason: pain) Qty: 60 0RF Referrals: ProviderMariana [Primary Care Provider] - Stand Alone Forms: Patient Portal/API
[2023-07-17] MEDS: ONDANSETRON 4 MG ODT SL (12:26)
[2023-07-17 12:49] VITALS: BP 116/74; PULSE 77; RESP 20; TEMP 36.8; O2SAT 100
[2023-07-17 13:05] LABS: Adenovirus Not Detected (Not Detect); B. parapertussis Not Detected (Not Detecte); Bordetella pertussis Not Detected (Not Detect); Chlamydophila pneumoniae Not Detected (Not Detect); Coronavirus 229E Not Detected (Not Detect); Coronavirus HKU1 Not Detected (Not Detect); Coronavirus NL 63 Not Detected (Not Detect); Coronavirus OC43 Not Detected (Not Detect); Human Metapneumovirus Not Detected (Not Detect); Human Rhinovirus/Enterovirus Not Detected (Not Detect); Influenza A Not Detected (Not Detect); Influenza B Not Detected (Not Detect); Mycoplasma pneumoniae Not Detected (Not Detect); Parainfluenza Virus 1 Not Detected (Not Detect); Parainfluenza Virus 2 Not Detected (Not Detect); Parainfluenza Virus 3 Not Detected (Not Detect); Parainfluenza Virus 4 Not Detected (Not Detect); Respiratory Syncytial Virus Not Detected (Not Detect); SARS- CoV-2 Not Detected (Not Detecte)
== END 2023-07-17 13:30 | disposition home or self-care (01) ==
PROVIDERS: Emergency Provider Physician Assistant Medical
DX: J32.9 Chronic sinusitis, unspecified (principal); R51.9 Headache, unspecified; Z20.822 Contact with and (suspected) exposure to COVID-19
CPT/HCPCS: 87633; 99282; 99283

== ENCOUNTER 2023-11-07 18:34 | Emergency (ER) | payer OTHER, SELFPAY ==
[2023-11-07 18:35] VITALS: BP 132/89; PULSE 74; RESP 14; TEMP 36.4; O2SAT 97; BMI 36.0
--- NOTE | 2023-11-07 18:43 | DI.RAD.S_ITS ---
PROCEDURE: XR CHEST 2V INDICATIONS: cough,chest congestion TECHNIQUE: 2 views of the chest were acquired. COMPARISON: None. FINDINGS: Surgical changes and devices: None. Lungs and pleura: Mild reticulonodular opacities in the right lower lung. No pleural effusions or pneumothorax. Mediastinum: Mediastinal contours are normal. Heart size is normal. Bones and chest wall: No suspicious bony abnormalities. Soft tissues appear unremarkable. IMPRESSION: Mild reticulonodular opacities in the right lower lung may represent consolidation/infection. Approved by: Erin Stahl M.D.,Ph.D. on 11/07/2023 at 18:21
--- NOTE | 2023-11-07 18:55 | ED.GENADULT ---
HPI - General Adult General Chief complaint: Upper Respiratory Symptoms Stated complaint: pnemonia exposure/cough/chest pressure Time Seen by Provider: 11/07/23 18:54 Source: patient, RN notes reviewed and old records reviewed Mode of arrival: Ambulatory Limitations: no limitations History of Present Illness HPI narrative: 23-year-old with history hypertension and polycystic kidney disease on lisinopril. Patient presents with complaint of low-grade fevers, nasal congestion, headache, cough which has been nonproductive, chest tightness, nausea but no vomiting. She describes some mild diarrhea. No urinary symptoms. She describes myalgias and body aches all over. She is not had any rashes or skin changes. She is does note some small ulcers or sores within her mouth. States her throat has been sore but does not feel like her tonsils are swollen. She states her spouse has pneumonia. Patient states symptoms started this Thursday, 4 days ago. Patient states she was seen at an urgent care on , she states they did not swab and told her she probably had an upper respiratory infection. She states lisinopril her only home medication. Prior and appendectomy. No reported drug allergies. Denies tobacco to myself but told nursing that she does use daily, no reports of alcohol use, no recreational drugs. Related Data Previous Rx's Medication Instructions Recorded electric breast pump #1 ea 02/06/23 sertraline 50 mg tablet 50 mg PO DAILY #30 tabs 03/06/23 acetaminophen 325 mg capsule 650 mg (2 x 325 mg) PO QID PRN 03/20/23 (Tylenol) pain #60 caps Allergies Allergy/AdvReac Type Severity Reaction Status Date / Time No Known Drug Allergies Allergy Verified 11/07/23 18:44 Review of Systems Review of Systems ROS Unobtainable: All systems reviewed & are unremarkable except as noted in HPI and below Patient History Medical History Acne Seasonal allergies Polycystic kidney disease LGSIL on Pap smear of cervix Surgical History [place] teeth extracted (~2018) History of removal of skin mole Family History Mother Polycystic kidney disease Family/Other Polycystic kidney disease Grandfather Marfans syndrome Polycystic kidney disease Family/Other Marfans syndrome Grandmother Lymphoma Arthritis Grandfather Mental health problem Family/Other Marfans syndrome Sister Depression Anxiety Social History marital status: number of children: 0 household members: spouse and friend(s) lives independently: Yes caregiver/support person: No housing: house pets and animals: Yes education level: college occupational status: employed current occupational exposures/hazards: Yes (exposure in the building, but no contact Hazmat duties while ) special elizabeth needs: No travel history: recent seatbelt use: always helmet use: Yes water heater temp set < 120 deg: Yes working smoke detector in home: Yes fire extinguisher in home: Yes carbon monox detector in home: Yes firearms in home: Yes (some locked up, not all) do you feel safe at home: Yes Smoking Status: Current every day smoker second hand exposure: Yes (roommate vapes) alcohol intake: former substance use type: does not use during the past year weight has: increased > 10 lbs well-balanced diet: about half the time daily servings fruits/ve-4 caffeine: Yes (<100mg/day) Type(s) of exercise: walking frequency: 3-4 times per week duration: 30-45 minutes/day Smoking Status: Current every day smoker tobacco type: vaping alcohol intake frequency: holidays/special occasions only Substance Use Type: does not use Exam Narrative Exam Narrative: GEN: well nourished, well appearing female, alert and oriented x 3, patient appears to be in mild distress. HEENT: Atraumatic, pupils are equal round reactive to light, extraocular movements are intact, patient has clear rhinorrhea bilaterally, TMs are clear with no fluid, there is no conjunctival pallor. Throat is clear without any exudates, erythema, tonsillar enlargement or uvular deviation HEART: Regular rate and rhythm without murmur, clicks, rubs. No carotid bruits, pulses are equal in upper and lower extremities LUNGS:Lungs clear to auscultation, no wheezes, rales, crackles, chest moves symmetrically, tachypnea or accessory muscle use. Patient does have an intermittent cough. ABD:bowel sounds normal, soft, non-tender, no guarding, rebound, rigidity, no masses noted, no hepatosplenomegaly :No CVA tenderness MSCL: Non-tender, no muscle atrophy, muscles strength 5/5 upper and lower extremities, full range of motion, normal gait NEURO:CN 2-12 intact, sensation normal. SKIN: No rash, erythema or skin changes Initial Vital Signs Initial Vital Signs: Vital Signs Temperature 97.6 F 11/07/23 18:35 Pulse Rate 74 11/07/23 18:35 Respiratory Rate 14 11/07/23 18:35 Blood Pressure 132/89 11/07/23 18:35 Pulse Oximetry 97 11/07/23 18:35 Oxygen Delivery Method Room Air 11/07/23 18:35 Course Orders Ordered: ED Orders 11/07/23 18:40 Respiratory Panel (Film Array) Stat 11/07/23 18:43 Chest [XR chest 2V] Stat Vital Signs Vital signs: Vital Signs - 8 hr 11/07/23 18:35 11/07/23 19:53 Temperature 97.6 F 98.1 F Pulse Rate 74 72 Respiratory Rate 14 16 Blood Pressure 132/89 142/92 H Pulse Oximetry 97 97 Oxygen Delivery Method Room Air Room Air Medical Decision Making Lab Data Labs: Lab Results 11/07/23 Range/Units 18:40 Chlamy pneumoniae PCR Not detected (Not Detect) Adenovirus (PCR) Not detected (Not Detect) B.parapertussis DNA PCR Not detected (Not Detecte) Coronavirus OC43 (PCR) Not detected (Not Detect) Coronavirus HKU1 (PCR) Not detected (Not Detect) Coronavirus 229E (PCR) Not detected (Not Detect) SARS-CoV-2 (PCR) Not detected (Not Detecte) Coronavirus NL63 (PCR) Not detected (Not Detect) Human Metapneumovir PCR Detected H (Not Detect) Influenza Type A (PCR) Not detected (Not Detect) Influenza Type B (PCR) Not detected (Not Detect) M. pneumoniae (PCR) Not detected (Not Detect) Parainfluenza 1 (PCR) Not detected (Not Detect) Parainfluenza 2 (PCR) Not detected (Not Detect) Parainfluenza 3 (PCR) Not detected (Not Detect) Parainfluenza 4 (PCR) Not detected (Not Detect) RSV (PCR) Not detected (Not Detect) Entero/Rhino (PCR) Detected H (Not Detect) Imaging Data Chest x-ray: Radiologist's Impression: Joselin Hoang??She/Her/Hers??23??F??2000 ? Allergy/Adv: No Known Drug Allergies (More??) Close Chest X-Ray (Signed) [facility] - 11/07/23 Pelvis Ultrasound (Signed) [facility] - 03/17/23 Abdomen/Pelvis CT (Addendum) [facility] - 03/17/23 Obstetrics Ultrasound (Signed) Kelly Granado - 01/20/23 Vascular Ultrasound (Signed) Rafael León - 01/14/23 Obstetrics Ultrasound (Signed) Jeremy Martell - 12/08/22 Outside Echo 10/07/22 DI Result CC 09/15/22 DI Result CC 08/11/22 Ultrasound (Signed) Austin Huntley - 07/01/22 [place] [address] XRay Report Signed Patient: Joselin Hoang MR#: [id number] : 2000 Acct:[id number] Age/Sex: 23 / F Date of Service: 11/07/23 Loc: Accession Number: [id number] Procedure: XR chest 2V Ordering Provider: Anastacia Ojeda D.O. PROCEDURE: XR CHEST 2V INDICATIONS: cough,chest congestion TECHNIQUE: 2 views of the chest were acquired. COMPARISON: None. FINDINGS: Surgical changes and devices: None. Lungs and pleura: Mild reticulonodular opacities in the right lower lung. No pleural effusions or pneumothorax. Mediastinum: Mediastinal contours are normal. Heart size is normal. Bones and chest wall: No suspicious bony abnormalities. Soft tissues appear unremarkable. IMPRESSION: Mild reticulonodular opacities in the right lower lung may represent consolidation/infection. Approved by: Erin Stahl M.D.,Ph.D. on 11/07/2023 at 18:21 MDM Narrative Medical decision making narrative: 23-year-old female presents with a appropriate vitals, has nasal congestion does have some reports of small ulcers in the mouth chest tightness and nonproductive cough. Patient has had about 3-4 days of symptoms. Has had a sick contact home to have pneumonia. Patient is overall well-appearing, lungs are clear without any wheeze or bronchospasm appreciated. No crackles. Respiratory panel is positive for human metapneumovirus as well as entero/rhinovirus. Chest x-ray shows mild reticulonodular opacity right lower lung may represent consolidation versus infection, no pleural effusions or pneumothorax. Patient's lung exam is clear she has 2 potential sources for her symptoms on her respiratory panel. We will defer antibiotics she has only had 3-4 days if symptoms. Reviewed findings with patient including her chest x-ray discussed as suspect it is more viral but if symptoms are persisting beyond a week or having persistent fevers should follow up for recheck and possibly antibiotics. Discharge Plan Departure Patient Disposition: Home Clinical Impression: Upper respiratory infection Activity Restrictions/Additional Instructions: Your respiratory panel tested positive for human metapneumovirus as well as entero/rhinovirus. These are both viral illnesses that typically last 7-10 days total. You can take Tylenol as needed for fevers. You can take [id number] medications for symptom control. Please return if you are having new or worsening chest pain, increasing shortness of breath, lightheadedness or passing out, persistent vomiting, coughing up blood, new swelling of extremities or other new or concerning changes. Prescriptions: No Action sertraline 50 mg tablet 50 mg PO DAILY Qty: 30 2RF (DME) electric breast pump See Rx Instructions .Route .MEDSUPPLY Qty: 1 0RF Rx Instructions: As directed acetaminophen [Tylenol] 325 mg capsule 650 mg PO QID PRN (Reason: pain) Qty: 60 0RF Referrals: ProviderMariana [Primary Care Provider] - Stand Alone Forms: Patient Portal/API, Work Release Note
[2023-11-07 19:34] LABS: Adenovirus Not Detected (Not Detect); B. parapertussis Not Detected (Not Detecte); Bordetella pertussis Not Detected (Not Detect); Chlamydophila pneumoniae Not Detected (Not Detect); Coronavirus 229E Not Detected (Not Detect); Coronavirus HKU1 Not Detected (Not Detect); Coronavirus NL 63 Not Detected (Not Detect); Coronavirus OC43 Not Detected (Not Detect); Human Metapneumovirus Detected (Not Detect); Human Rhinovirus/Enterovirus Detected (Not Detect); Influenza A Not Detected (Not Detect); Influenza B Not Detected (Not Detect); Mycoplasma pneumoniae Not Detected (Not Detect); Parainfluenza Virus 1 Not Detected (Not Detect); Parainfluenza Virus 2 Not Detected (Not Detect); Parainfluenza Virus 3 Not Detected (Not Detect); Parainfluenza Virus 4 Not Detected (Not Detect); Respiratory Syncytial Virus Not Detected (Not Detect); SARS- CoV-2 Not Detected (Not Detecte)
[2023-11-07 19:53] VITALS: BP 142/92; PULSE 72; RESP 16; TEMP 36.7; O2SAT 97
== END 2023-11-07 20:00 | disposition home or self-care (01) ==
PROVIDERS: Emergency Provider Emergency Medicine
DX: J06.9 Acute upper respiratory infection, unspecified (principal); B97.81 Human metapneumovirus as the cause of diseases classified elsewhere; B97.10 Unspecified enterovirus as the cause of diseases classified elsewhere; F17.290 Nicotine dependence, other tobacco product, uncomplicated
CPT/HCPCS: 71046; 87633; 99283

== ENCOUNTER → 2024-01-04 07:20 | Outpatient (CLI) | payer OTHER, SELFPAY ==
--- NOTE | 2024-01-04 | DI.CT.S_ITS ---
PROCEDURE: CT ABDOMEN PELVIS W CON INDICATIONS: ESSENTIAL HTN,DOMINANT POLYCYSTIC KIDNEY DISEASE TECHNIQUE: After the administration of intravenous contrast, axial sections acquired from the lung bases to the pubic symphysis. Coronal and sagittal reformats were performed. For radiation dose reduction, the following was used: automated exposure control, adjustment of mA and/or kV according to patient size. COMPARISON: [facility], CT, CT ABDOMEN PELVIS W CON, 03/17/2023, 23:13. FINDINGS: Image quality: Diagnostic. Lower Chest: No significant findings. ABDOMEN: Liver: No solid mass. Gallbladder: No radiopaque gallstones or wall thickening. Biliary ducts: No biliary dilation. Pancreas: No ductal dilation. Spleen: Size is within normal limits. Adrenal Glands: No adrenal nodules. Kidneys and Ureters: No hydronephrosis. No solid mass. Polycystic kidneys. Stomach and Bowel: Normal colonic caliber, without significant wall thickening. Appendectomy. Peritoneum: No abnormal intraperitoneal fluid. No free air. Ventral Wall: No significant ventral hernia. Abdominal Nodes: No retroperitoneal or mesenteric adenopathy by size criteria. Vessels: Aorta and inferior vena cava are normal in size. PELVIS: Pelvic Organs: IUD is present within the central uterus. Left corpus luteum, which is benign. Bladder: No bladder wall thickening, accounting for underdistention. Pelvic Nodes: No enlarged lymph nodes. Miscellaneous: No inguinal hernias are seen. Bones: No aggressive osseous abnormality. IMPRESSION: Polycystic kidneys, without solid-appearing mass. Dictated by: Mark Padron M.D. on 01/04/2024 at 14:37 Approved by: Mark Padron M.D. on 01/04/2024 at 14:39
[2024-01-04 08:33] LABS: Estimated Glomerular Filt Rate > 60 mL/min (>60)
== END ==
PROVIDERS: Radiology Diagnostic Radiology; Referring Provider Internal Medicine Nephrology; Visit Provider Internal Medicine Nephrology
DX: Q61.3 Polycystic kidney, unspecified (principal); I10 Essential (primary) hypertension
CPT/HCPCS: 36415; 74177; 82565; Q9967

== ENCOUNTER 2024-04-27 11:26 | Day surgery (SDC) | payer OTHER, SELFPAY ==
[2024-04-26 08:19] VITALS: BMI 35.4
--- NOTE | 2024-04-27 13:31 | PM.PREOP ---
Pre-operative Note Interval Note History & Physical reviewed/Exam performed by Physician: Yes Changes to H&P: No
[2024-04-27 13:59] VITALS: BP 103/67; PULSE 90; RESP 16; TEMP 36.6; O2SAT 97; BMI 35.4
[2024-04-27 14:18] VITALS: BP 103/67; PULSE 90; RESP 16; TEMP 36.6; O2SAT 97
[2024-04-27] MEDS: LACTATED RINGERS 1,000 ML 42 ML IV (14:20)
--- NOTE | 2024-04-27 15:20 | SUR.OPER ---
Lithotomy on padded OR bed, head on pillow, arms secured on padded arm boards at <90 degrees abduction. Legs secured in padded yellow fins stirrups.
[2024-04-27] MEDS: BUPIVACAINE 0.25% W/ EPI (PF) 10 ML VIAL 20 ML INJ (15:25)
[2024-04-27 15:35] VITALS: BP 99/67; PULSE 84; RESP 22; TEMP 36.4; O2SAT 100
[2024-04-27 15:41] VITALS: BP 104/64; PULSE 78; RESP 21; O2SAT 100
[2024-04-27 15:44] VITALS: BP 120/80; PULSE 74; RESP 24; O2SAT 100
[2024-04-27 15:51] VITALS: BP 109/76; PULSE 78; RESP 23; TEMP 36.4; O2SAT 98
--- NOTE | 2024-04-27 16:08 | P.OP_ITS ---
Operative Date/Time/Diagnoses Date of procedure: 04/27/24 Time of procedure: 16:08 Pre-op diagnosis: internal hemorrhoids anal skin tag Post-op diagnosis: same Procedure & Clinicians Procedure: hemorrhoidal banding excision of anal skin tag Same procedure as scheduled: Yes Indications: symptomatic internal hemorrhoids Surgeon: Leopoldo Ortiz Anesthesia Type: Sedation Operative Notes Findings: grade 2 internal hemorrhoids Right posterior left lateral Specimen(s): other (anal skin tag) Estimated Blood Loss (mL): 5 Procedure in detail: Patient was brought to the operating room placed supine on the table. Bilateral lower extremity compression devices were applied. Sedation was administered and she was placed into lithotomy position. Time-out was performed. She was prepped and draped in typical fashion. Internal examination of the rectum was made and demonstrated grade 2 hemorrhoids in the left lateral in the right posterior columns. Each column was grasped with a suction then doubly ligated at its base. There was a small anal skin tag at the 12 o'clock positioned in lithotomy which was excised. The cutaneous defect was closed with interrupted Monocryl. A total of 30 mL of 0.25% bupivacaine with epinephrine was used for local anesthetic. She tolerated the procedure well and was transferred to [facility] in good condition. Complications: none Post-operative Condition: stable Disposition: same day surgery
== END 2024-04-27 16:00 | disposition home or self-care (01) ==
PROVIDERS: Referring Provider Surgery; Visit Provider Surgery
PROC: (CPT 45990; principal; 2024-04-27 13:00)
DX: K64.8 Other hemorrhoids (principal); K64.4 Residual hemorrhoidal skin tags
CPT/HCPCS: 46221; 46220; 82962; J2704

== ENCOUNTER 2024-05-19 06:43 | Day surgery (SDC) | payer OTHER, SELFPAY ==
[2024-05-12 08:25] VITALS: BMI 35.4
[2024-05-19 06:56] VITALS: BP 110/73; PULSE 99; RESP 16; TEMP 36.4; O2SAT 100; BMI 35.4
[2024-05-19] MEDS: ACETAMINOPHEN 325 MG TABLET 975 MG PO (07:14)
[2024-05-19] MEDS: LACTATED RINGERS 1,000 ML 42 ML IV ×2 (07:15→08:56)
--- NOTE | 2024-05-19 07:26 | P.HPOB_ITS ---
History of Present Illness History of Present Illness Narrative: Joselin Hoang is a 23 year old female 1 para 1 who presents for a LEEP cone biopsy of the cervix due to at least CHRIS 1, can not rule out high-grade. [facility] Medical History (Updated 05/12/24 @ 08:35 by Azucena Allison RN) Anal skin tag (04/26/24) delivery delivered Acne Seasonal allergies Polycystic kidney disease LGSIL on Pap smear of cervix Surgical History (Updated 05/12/24 @ 08:35 by Azucena Allison RN) History of banding of hemorrhoid (04/26/24) History of laparoscopic appendectomy (03/18/23) History of (01/22/23) [place] teeth extracted (~2018) History of removal of skin mole Family History Mother Polycystic kidney disease Family/Other Polycystic kidney disease Grandfather Marfans syndrome Polycystic kidney disease Family/Other Marfans syndrome Grandmother Lymphoma Arthritis Cancer Grandfather Mental health problem Heart disease Family/Other Marfans syndrome Sister Depression Anxiety Uncle Heart disease Social History marital status: number of children: 1 household members: spouse, children and friend(s) lives independently: Yes caregiver/support person: No housing: house pets and animals: Yes education level: college occupational status: employed current occupational exposures/hazards: Yes (exposure in the building, but no contact Hazmat duties while ) special elizabeth needs: No travel history: recent seatbelt use: always helmet use: Yes water heater temp set < 120 deg: Yes working smoke detector in home: Yes fire extinguisher in home: Yes carbon monox detector in home: Yes firearms in home: Yes (some locked up, not all) do you feel safe at home: Yes Smoking Status: Current every day smoker second hand exposure: Yes (roommate vapes) alcohol intake: former substance use type: does not use during the past year weight has: increased > 10 lbs well-balanced diet: about half the time daily servings fruits/ve-4 caffeine: Yes (<100mg/day) Type(s) of exercise: walking frequency: 3-4 times per week duration: 30-45 minutes/day Meds Home Medications and Allergies Home Medications Medication Instructions Recorded Confirmed Type sertraline 50 mg tablet 50 mg PO DAILY #30 tabs 03/06/23 05/19/24 Rx lisinopril 20 mg tablet 20 mg PO DAILY 04/22/24 05/19/24 History sumatriptan succinate 100 mg tablet See Rx Instructions PO .COMPLEX 04/22/24 04/22/24 History topiramate 25 mg tablet 25 mg PO DAILY 04/22/24 05/19/24 History acetaminophen 325 mg capsule 650 mg (2 x 325 mg) PO QID PRN 04/27/24 05/19/24 Rx (Tylenol) pain #60 caps docusate sodium 100 mg capsule 100 mg PO BID #30 caps 04/27/24 05/19/24 Rx (Colace) tramadol 50 mg tablet 50 mg PO Q6H PRN pain #5 tabs 04/27/24 05/19/24 Rx Allergies Allergy/AdvReac Type Severity Reaction Status Date / Time No Known Drug Allergies Allergy Verified 05/19/24 06:52 Exam Vital Signs (past 8 hours): - 05/19/24 06:56 Temperature 97.5 F L Pulse Rate 99 H Respiratory Rate 16 Blood Pressure 110/73 Pulse Oximetry 100 Oxygen Delivery Method Room Air Oxygen Delivery Method Room Air Narrative Exam Narrative: HEENT: No thyromegaly, no anterior cervical or supraclavicular lymphadenopathy. Lungs:Clear to auscultation bilaterally, no wheezes. Cardiovascular: Regular rate and rhythm, no murmurs, rubs, or gallops. Abdomen: Well-healed laparoscopy and Pfannenstiel scars. No hepatosplenomegaly. No masses palpable. External genitalia: Normal Vagina: Normal Cervix: Parous Bimanual exam: 6 Week size uterus. Mobile. Extremities: No edema Assessment & Plan Assessment & Plan narrative: Assessment: 23-year-old 1 para 1 with at least CHRIS 1, can not rule out high-grade on office biopsy ECC negative Plan: LEEP cone biopsy of the cervix The risks, benefits, and alternatives to the procedure were explained to the patient. The risks including bleeding and infection. She understands these risks and agrees to proceed. A full par Q was held and consent form was signed. Time-Based Coding :: [TOTAL MINUTES] spent with patient and on the chart (including review of chart, obtaining history, exam, reviewing outside data, placing orders, documenting exam and treatment plan, and counseling patient) on [DATE].
--- NOTE | 2024-05-19 07:28 | PM.PREOP ---
Pre-operative Note Interval Note History & Physical reviewed/Exam performed by Physician: Yes Changes to H&P: No H&P completed within 30 days and has changed as indicated here:: 05/19/24
[2024-05-19 08:30] VITALS: BP 97/44; PULSE 100; RESP 16; TEMP 36.2; O2SAT 98
[2024-05-19 08:34] VITALS: BP 91/60; PULSE 99; RESP 16; O2SAT 98
[2024-05-19 08:40] VITALS: BP 95/64; PULSE 94; RESP 16; TEMP 36.2; O2SAT 98
--- NOTE | 2024-05-19 08:48 | PM.GYNOP.1 ---
Operative Date/Time/Diagnoses Date of procedure: 05/19/24 Time of procedure: 08:48 Pre-op diagnosis: CHRIS 1 and can not rule out high-grade at the 12 o'clock position of the cervix Post-op diagnosis: same Procedure & Clinicians Procedure: Procedures Operation Date: 05/19/24 07:45 <No data on this case meets the specified criteria> Indications: 23-year-old 1 para 1 with CHRIS 1, and a focus where high-grade DINORAH could not be ruled out on colposcopic biopsy. Surgeon: Marcela Yin Anesthesia Type: General (LMA) Operative Notes Findings: Lugol's light at the 10 to 1 o'clock position on the cervix Closure Type: not applicable Specimen(s): other (LEEP cone biopsy of the cervix with suture at 12:00 p.m.) Estimated blood loss (mL): 3 Blood products transfused: none Procedure in detail: After informed consent was obtained, the patient was taken to the operating room where she was placed in the dorsal supine position. After adequate LMA general anesthesia was achieved, she was placed in the dorsal lithotomy position, and prepped and draped in the usual sterile fashion. A time-out was performed. A plastic coated bivalve speculum was placed into the vagina. A plastic coated single-tooth tenaculum was placed on the anterior lip of the cervix. A pickup was used to place the ParaGard IUD string far up in the cervix. Lugol's solution was applied to the cervix. There was Lugol's light area at the 10-1 o'clock position on the anterior cervix. A 20 mm loop was used with settings at 80 cut and 60 cautery at the 10 to 1 o'clock position. The ball cautery was used for hemostasis. The pickup was used to bring the ParaGard IUD string back out of the cervical os. Hemostasis was achieved. The specimen was tagged at the 12 o'clock position. Sponge, lap, and instrument counts were correct x2. The patient tolerated the procedure well, and was taken to PACU in stable condition. Complications: none Post-operative Condition: stable Disposition: PACU Plan for aftercare: Home after recovery
== END 2024-05-19 09:01 | disposition home or self-care (01) ==
PROVIDERS: Referring Provider Obstetrics & Gynecology; Visit Provider Obstetrics & Gynecology
PROC: 0UBC7ZZ Excision of Cervix, Via Natural or Artificial Opening (ICD-10-PCS; CPT 57522; principal; 2024-05-19 07:45)
DX: N87.0 Mild cervical dysplasia (principal)
CPT/HCPCS: 57522; J1100; J2250; J2405; J2704; J3010